=== PATIENT | male | born 1945 | race Caucasian/White ===

== ENCOUNTER 2023-12-31 12:06 | Inpatient (IN) | payer OTHER, SELFPAY ==
[2023-12-31] VITALS (10 sets, daily range): BP systolic 119–168; BP diastolic 61–82; BMI 30.2
--- NOTE | 2023-12-31 07:52 | ED.GENMED ---
History of Present Illness
General
Chief Complaint: Abdominal Pain
Time Seen by Provider: 12/31/23 07:46
Travel History
Have you had any contact with someone who has COVID-19?: No
Do you have any symptoms of coronavirus? Fever > 100 degrees, chills, cough, shortness of breath, sore throat, loss of taste or smell, muscle aches, or headache?: No
History of Present Illness
History of Present Illness:
78-year-old male with history of A-fib on Xarelto, dementia, and alcohol abuse presents to the emergency department for evaluation of abdominal pain beginning yesterday associated with multiple episodes of coffee-ground emesis overnight. Patient is
reporting 8 out of 10 periumbilical and epigastric pain. No known fevers. He is not sure whether he took his dose of Xarelto last night
Past History
Past History
ED Past Medical History: Arrthythmia (AFib), CHF, HTN and Other (Spinal stenosis, left foot drop)
ED Past Surgical History: Other (herniorrhaphy)
Social History
Tobacco: Non-smoker
Alcohol: Chronic alcoholic
Drug: None
Personal:
Living: with family
Employment: Retired
Family History
Family History: Other
Review of Systems
Review of Systems
Allergies reviewed?: Yes
All Other Systems: ROS reviewed and negative except as documented in HPI and ROS
Phy Exam
Physical Exam
Physical Exam:
GEN: Well appearing, NAD, WDWN
Eyes: PERRLA, EOMs intact, no scleral icterus
HENT: NCAT, oral mucosa moist
Lungs: CTAB, no wheezes, rales, rhonchi, normal chest wall excursion
Cardiac: RRR, no M/R/G, no peripheral edema. Radial pulses 2+ bilat
Abdomen: Distended abdomen, markedly tender to palpation to all 4 quadrants, soft but nonreducible umbilical hernia noted
Neuro: AO x 2
MSK: No gross deformity or ecchymosis. No edema. No digital clubbing
Skin: No rashes, petechiae. Normal color, no pallor or jaundice.
Psych: Calm, cooperative, proper hygiene
Course
Orders/Labs/Results
Orders:
Orders
12/31/23 07:51
CT Abd/Pel (IV only)-DH only Urgent
Comment:
Reason For Exam: epigastric pain, coffee ground emesis
Ondansetron Injectable [Zofran] 4 mg IV NOW STA
Pantoprazole [Protonix IV] 80 mg IV NOW STA
12/31/23 07:59
Type+Screen Urgent
Complete Blood Count/With Diff Urgent
Comprehensive Metabolic Panel Urgent
Lipase Urgent
Prothrombin Time Urgent
12/31/23 08:40
0.9% Sodium Chloride 1000 ml [Nss] 1,000 ml IV BOLUS
12/31/23 Lunch
NPO
Allow oral meds: No
Allow clear liquids: No
NPO with Ice Chips: Yes
Pantoprazole 80 mg/100 ml Nss [Protonix] 80 mg in 100 ml IV Q10H
12/31/23 11:40
Admit/Transfer Patient As Directed
Co-Sign Provider:
Level of Care: Inpatient admission
Assign to:: Telemetry
Physician / Group: Rufus
Diagnosis: Coffee ground emesis -rule out upper GI bleed
Reason for Telemetry: Arrhythmia
Date to Stop Telemetry: 01/03/24
Time to Stop Telemetry: 11:00
Reason for Hospitalization: see progress note
Expected length of stay greater than two midnights?: Yes
ELOS- Estimated Length of Stay in days: 2
I certify the patient meets the requirements for IP care: Yes
12/31/23 11:41
Code Status As Directed
Resuscitation Status: Do not resuscitate
Reached after discussion with pt or family/Healthcare POA: Yes
DNR Bracelet Application ONCE
12/31/23 13:42
H&H Q8H
Ondansetron Injectable [Zofran] 4 mg IV Q6HPRN PRN
Pantoprazole 80 mg/100 ml Nss [Protonix] 80 mg in 100 ml IV Q10H
12/31/23 13:42
GASTROINTESTINAL CONSULT Routine
Consulting Provider: Janak Blank
Was physician already notified: Yes
Reason for consult: Coffee ground emesis
Activity As Directed
Activity Level: With Assistance
Bladder Scan As Directed
Follow Bladder Retention/Intermittent Cath Algorithm?: Yes
PRN if no void in __ hours: 6
Frequency: Per Retention Algorithm
If Bladder Scan Result >: 400
then:: Straight cath
I&O [Intake/ Output] As Directed
Frequency: q12h
Pneumatic Compression Sleeves As Directed
Type: Knee high
Straight Cath As Directed
Frequency: Per Retention Algorithm
Additional Instructions: straight cath as needed per acute urinary retention algorithm for 24 hrs
Additional Instructions: for bladder scan greater than 400 mL
DX Deep Vein Thrombosis Video Routine
12/31/23 14:00
0.9% Sodium Chloride 1000 ml [Nss] 1,000 ml IV 80 mls/hr
12/31/23 21:42
H&H Q8H
01/01/24 05:42
H&H Q8H
01/01/24 06:00
BMP [Basic Metabolic Panel] IN AM
CBC/No Diff [Complete Blood Count/No Diff] IN AM
01/03/24 11:00
DC Protocol for Telemetry ONCE
Abnormal Lab Results
12/31/23
07:59
MCH 33.0 H pg
(27.0-31.0)
Absolute Neuts (auto) 7.0 H 10^3/uL
(1.4-6.5)
Neutrophils % 78.3 H %
(42.2-75.2)
Lymphocytes % 14.1 L %
(20.5-51.1)
PT 22.8 H Sec
(11.4-14.6)
BUN 30 H mg/dl
(9-20)
Creatinine 1.6 H mg/dL
(0.7-1.3)
Glucose 146 H mg/dl
(70-99)
Calcium 10.5 H mg/dl
(8.4-10.2)
Alkaline Phosphatase 143 H U/L
(38-126)
Total Protein 8.7 H g/dl
(6.3-8.2)
12/31/23 07:59
12/31/23 07:59
Vital Signs
Initial and Last Documented VS:
Initial Vital Signs
Temp Pulse Resp BP Pulse Ox
97.4 F 77 20 145/73 98
12/31/23 07:45 12/31/23 07:45 12/31/23 07:45 12/31/23 07:45 12/31/23 07:45
Last Documented Vital Signs
Temp Pulse Resp BP Pulse Ox
97.4 F 60 16 135/77 94
12/31/23 07:45 12/31/23 13:00 12/31/23 13:00 12/31/23 13:00 12/31/23 13:00
MDM/Problems Addressed
MDM/Problems Addressed:
78-year-old male presents with coffee-ground emesis and abdominal pain. CT shows no evidence for acute pathology, high suspicion for gastric ulcer or severe gastritis given chronic daily alcohol use. He is on anticoagulants thus increasing risk of
discharge home despite his clinical stability and normal hemoglobin. Will admit on IV PPIs for GI evaluation
*Critical Care Note
Total Time (30-74mins, 75-104mins- exclusive of procedures): Not Applicable
Update Note
Update Note:
Discussed clinical findings with the spouse, she confirms that he is a DNR/DNI but would consent to endoscopy for further assessment of presumed upper GI bleed
ED Attending Note
-
Portions of this chart may have been created with voice recognition software.� Occasional wrong word or��sound alike� substitutions may have occurred due to the inherent limitations of voice recognition software.
Discharge Plan
Departure
Patient Disposition: Admit
Date of Disposition: 12/31/23
Time of Disposition: 09:53
Admit to: Med/Surg
Presentation/result/management discussed w/ accepting MD/DO: Hospitalist
Discharge Problem:
Acute upper gastrointestinal bleeding
Interventions
Interventions:
*Risk Screen - Suicide Last Done: 12/31/23 07:45
*General Assessment Last Done: 12/31/23 07:45
*Neglect/Abuse Screening Last Done: 12/31/23 07:45
*ED COVID-19 Vaccine History Last Done: 12/31/23 08:17
LD-Qsghsy-Eijoxonpxp Assessment Last Done: 12/31/23 08:17
[2023-12-31] MEDS: ZOFRAN 4 MG IV (08:08)
[2023-12-31] MEDS: PROTONIX IV 80 MG IV (08:08)
[2023-12-31 08:09] LABS: % Basophils 0.9 % (0-2); % Eosinophils 0.9 % (0-6); % Immature Granulocytes 0.3 % (0-0.5); % Lymphocytes 14.1 % (20.5-51.1); % Monocytes 5.5 % (1.7-9.3); % Neutrophils 78.3 % (42.2-75.2); Absolute Basophils 0.1 10^3/uL (0-0.2); Absolute Eosinophils 0.1 10^3/uL (0-0.7); Absolute Lymphocytes 1.3 10^3/uL (1.2-3.4); Absolute Monocytes 0.5 10^3/uL (0.1-0.6); Hematocrit 44.3 % (39.0-52.0); Mean Corp Hgb Conc. 36.1 g/dL (33.0-37.0); Mean Corpuscular Volume 91.3 fL (80.0-94.0); Mean Platelet Volume 10.1 fL (7.4-10.4); Nucleated Red Blood Cells % 0 % (-); Platelet Count 272 10^3/uL (130-400); Red Blood Cell Count 4.85 10^6/uL (4.70-6.10); Red Cell Dist. Width 13.3 % (11.5-14.5)
[2023-12-31 08:20] LABS: INR 1.99; PT 22.8 Sec (11.4-14.6)
[2023-12-31 08:22] LABS: ALT (SGPT) 21 U/L (0-50); AST (SGOT) 32 U/L (17-59); Albumin 4.7 g/dl (3.5-5.0); Alkaline Phosphatase 143 U/L (38-126); Blood Urea Nitrogen 30 mg/dl (9-20); Calcium 10.5 mg/dl (8.4-10.2); Carbon Dioxide 24 mmol/L (22-30); Chloride 98 mmol/L (98-107); Estimated Creatinine Clearance 38 ml/min; Glucose 146 mg/dl (70-99); Lipase 137 U/L (23-300); Sodium 135 mmol/L (135-145); Total Protein 8.7 g/dl (6.3-8.2); eGFR 43.29
[2023-12-31] MEDS: NSS 1000 IV ×2 (09:50→14:25)
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
--- NOTE | 2023-12-31 11:49 | HPS.HSE ---
Addendum entered and electronically signed by Juan Hooper MD 01/01/24 09:53:
Correction - baseline cr 0.9
Original Note:
Family Physician
-
Family Physician: Neo Villegas
Chief Complaint
-
Coffee-ground emesis
History of Present Illness
Patient has history of dementia and history is from family and ER charting.
Patient is alert and oriented to place and person but is not sure why he is here. He does not remember having multiple episodes of coffee-ground emesis overnight. He states that his brought him here.
He had complained of abdominal pain to the ER medical provider but is denying any abdominal pain to me now.
Denies any nausea feeling.
Denies any diarrhea.
Denies any shortness of breath.
Pt denies dizziness.
He is on Xarelto , not sure last dose timing.
I spoke to daughter on phone.
was not available to talk ,she is on the way to hospital.
Medical History
Past Medical History
Past Medical History: Reports Arrhythmia (A-fib), CHF and HTN
Additional Past Medical History:
Spinal stenosis, left foot drop
Past Surgical History: Reports Other (Herniorrhaphy)
Additional Past Surgical History:
Herniorrhaphy
Social History
Tobacco: Non-smoker
Alcohol: Daily
Drug: None
Personal:
Living: With Family
Family History
Family History: Not pertinent
Allergies / Home Medications
Allergies reflects when Allergies were last updated in [facility].
Home Medications with original date entered in [facility]
Allergy/Medication List:
Allergies
Allergy/AdvReac Type Severity Reaction Status Date / Time
aspirin Allergy Hives Verified 12/31/23 07:51
Home Medications
allopurinol 100 mg tablet 100 mg PO DAILY Gout 12/31/23
cholecalciferol (vitamin D3) 25 mcg (1,000 unit) tablet 25 mcg PO DAILY Supplement 12/31/23
donepezil 5 mg tablet 5 mg PO HS Neurological Condition 12/31/23
isosorbide mononitrate 10 mg tablet 10 mg PO BID Heart Disease/Condition 12/31/23
memantine 5 mg tablet 5 mg PO BID Neurological Condition 12/31/23
metoprolol succinate 25 mg tablet,extended release 24 hr 25 mg PO QPM Blood Pressure 12/31/23
mometasone-formoterol HFA 200 mcg-5 mcg/actuation aerosol inhaler (Dulera) 2 puff inhalation R BID Lung/Breathing Issues 12/31/23
omega 8-tot-ios-fish oil 1,000 mg (120 mg-180 mg) capsule (Fish Oil) 1 cap PO DAILY Supplement 12/31/23
pantoprazole 20 mg tablet,delayed release 20 mg PO SUWEFR@0800 Gastrointestinal Issue 12/31/23
potassium chloride 20 mEq tablet,extended release(part/cryst) 20 meq PO QPM Electrolyte Repletion 12/31/23
rivaroxaban 20 mg tablet (Xarelto) 20 mg PO QPM Blood Clot Prevention/Tx 12/31/23
spironolactone 25 mg tablet 25 mg PO DAILY Blood Pressure 12/31/23
therapeutic multivitamin 1 tab PO DAILY Supplement 12/31/23
torsemide 20 mg tablet 20 mg PO BID Fluid Retention/Swelling 12/31/23
Review of Systems
-
Unable to obtain full review of systems at this time due to: Dementia
Physical Exam
Vital Signs
Vital Signs
Temp Pulse Resp BP Pulse Ox
97.4 F 69 19 129/67 98
12/31/23 07:45 12/31/23 10:30 12/31/23 10:30 12/31/23 10:00 12/31/23 10:30
Physical Exam
General: No Apparent Distress
HEENT: Moist mucous membranes
Respiratory: Clear
Cardiac: S1/S2 and Regular Rhythm; No Tachycardia
GI: Soft, Tender (some in periumbilical area, no rebound) and Distended (mild); No Normal Bowel Sounds (hypoactive)
Neuro: AO x 3
Psych: Calm
Laboratory Results
-
12/31/23 07:59
12/31/23 07:59
Laboratory Results
PT 22.8 Sec (11.4-14.6) H 12/31/23 07:59
INR 1.99 12/31/23 07:59
Total Bilirubin 1.0 mg/dl (0.2-1.3) 12/31/23 07:59
AST 32 U/L (17-59) 12/31/23 07:59
ALT 21 U/L (0-50) 12/31/23 07:59
Alkaline Phosphatase 143 U/L (38-126) H 12/31/23 07:59
Lipase 137 U/L (23-300) 12/31/23 07:59
Data Reviewed
-
CT Scan: Report Reviewed by me (CT A/P)
Lab Data: Labs Reviewed by me
Impression/Plan
-
Abdominal pain with multiple episode of coffee-ground emesis. Rule out upper GI bleed. Rule out secondary to constipation/ileus/enteritis. Currently hemodynamically stable. Patient is on anticoagulation with Xarelto. Admit to hospital.
Keep NPO.
Check serial H&H.
Consult GI.
Start on bowel regimen if ok from GI standpoint.
Start on Protonix drip.
Hold Xarelto.
YVES vs CKD
Last known creatinine 09/2027 was 2.9.
Hold diuretics and start on cautious IV fluids and follow creatinine.
Check a bladder scan.
Obtain old information.
History of atrial fibrillation-on Xarelto which I would hold. Not on any rate control medication. Admit to telemetry.
Chronic CHF-last known EF in 2021 was 55 to 60%. Clinically compensated. Hold diuretics with ongoing GI bleed.
Hypertension-hold medication for concern of GI bleed and follow.
DNR/DNI per family
[2023-12-31 14:06] LABS: Hematocrit 39.7 % (39.0-52.0); Hemoglobin 13.8 g/dL (13.0-18.0)
[2023-12-31] MEDS: PROTONIX 100 IV ×2 (14:25→23:50)
--- NOTE | 2023-12-31 16:35 | PTCARENOTE ---
pt admitted from ED, family at bedside assisting with HX as pt has dementia and is AOx2. pt denies pain, LCTA B/L. afib. abd round distended but not firm or tender. pt ambulated x2 assist to bathroom, had large formed BM was incont of urine. no
N/V/D. skin CDI no edema. +PP CB in reach. bed alarm applied
[2023-12-31 21:45] LABS: Hemoglobin 12.6 g/dL (13.0-18.0)
[2024-01-01] VITALS (8 sets, daily range): BP systolic 12–167; BP diastolic 52–111; BMI 30.2
[2024-01-01] MEDS: NSS 1000 IV ×2 (02:47→13:50)
[2024-01-01 06:11] LABS: Hematocrit 35.7 % (39.0-52.0); Hemoglobin 12.6 g/dL (13.0-18.0); Mean Corp Hgb Conc. 35.3 g/dL (33.0-37.0); Mean Corpuscular Hgb 33.3 pg (27.0-31.0); Mean Corpuscular Volume 94.4 fL (80.0-94.0); Mean Platelet Volume 9.8 fL (7.4-10.4); Platelet Count 231 10^3/uL (130-400); Red Blood Cell Count 3.78 10^6/uL (4.70-6.10); Red Cell Dist. Width 13.8 % (11.5-14.5); White Blood Cell Count 6.3 10^3/uL (4.8-10.8)
[2024-01-01 06:40] LABS: Blood Urea Nitrogen 21 mg/dl (9-20); Carbon Dioxide 25 mmol/L (22-30); Chloride 106 mmol/L (98-107); Estimated Creatinine Clearance 50 ml/min; Glucose 95 mg/dl (70-99); Potassium 3.7 mmol/L (3.5-5.1); Sodium 137 mmol/L (135-145); eGFR > 60.00
[2024-01-01] MEDS: SYMBICORT 160/4.5 MCG INHALER 2 PUFF INH (07:59)
--- NOTE | 2024-01-01 09:10 | W.PN.UPDATE ---
Update Note
Progress Note Update
Patient seen in follow-up today, reports tolerating clear liquids last night. Denies any recurrent nausea, vomiting or abdominal pain. He does still exhibit some epigastric tenderness on exam, no rebound or guarding. Mild abdominal distension,
tympanic to percussion. He is having bowel movements.
Hemoglobin 13.8 --> 12.6, BUN 30 --> 21, Cr. improved to 1.2.
After discussion with patient and his , January (POA), will proceed with EGD today. Last dose of Xarelto 12/29.
--- NOTE | 2024-01-01 09:42 | W.PN.HOSP.TC ---
Today's Communication/Plan
-
EGD today
Assessment / Plan
Assessment / Plan
Abdominal pain with multiple episode of coffee-ground emesis. Rule out upper GI bleed. Rule out secondary to constipation/ileus/enteritis.Patient is on anticoagulation with Xarelto.
No further episodes.�H&H drop noted which could be dilutional .
Follow serial H&H.
GI planning on EGD today
Continue bowel regimen.
Continue with Protonix drip.
Hold Xarelto.
YVES vs CKD
Last known creatinine 09/2027 was 0.9.
Suspect prerenal-improved creatinine to 1.2 from 1.6 on adx
Hold diuretics and continue on cautious IV fluids till patient initiated on oral diet..
History of atrial fibrillation-on Xarelto which I would hold. Not on any rate control medication.
Chronic CHF-last known EF in 2021 was 55 to 60%. Clinically compensated. Hold diuretics with ongoing GI bleed and YVES.
Hypertension-blood pressure under goal. Will resume medication after EGD.
DNR/DNI
Anticipated Discharge: 24 - 48 hours
Subjective/Interval History
-
Date of Service: January 01, 2024
Patient pleasantly confused.
Discussed with RN at bedside.
No further vomiting or hematemesis.
No bowel movement today so far.
Objective Data
-
Labs:
Laboratory Results
12/31/23 01/01/24
21:41 05:52
WBC 6.3
Hgb 12.6 L 12.6 L
Hct 35.0 L 35.7 L
Plt Count 231
Sodium 137
Potassium 3.7
Chloride 106
Carbon Dioxide 25
BUN 21 H
Creatinine 1.2
Glucose 95
Calcium 9.0 D
Vital Signs:
Vital Signs
Temp Pulse Resp BP Pulse Ox
97.7 F 52 16 139/64 99
01/01/24 07:53 01/01/24 08:06 01/01/24 08:06 01/01/24 07:53 01/01/24 08:06
I&O
12/31/23 01/01/24 01/02/24
06:59 06:59 06:59
Intake Total 600 / 600
Output Total 420 / 420
Balance 180 / 180
Review of Systems
-
Unable to obtain full review of systems at this time due to: Dementia
Physical Exam
-
General: No Apparent Distress
HEENT: Moist Mucous Membranes
Respiratory: Clear to Auscultation
Cardiac: Regular Rhythm and S1/S2
GI: Soft, Nontender (no tenderness in periumiblical area like he had yesterday), Normal Bowel Sounds and Distended (mild)
Neuro: Awake, Alert and Oriented (place and person)
Psych: Calm and Confused; Negative Agitated
Data Reviewed
-
Labs: Labs Reviewed by me
[2024-01-01] MEDS: PROTONIX 100 IV (10:26)
--- NOTE | 2024-01-01 15:40 | W.DS.TRANS ---
DC Summary - [facility]
-
Discharge Instructions:
Discharge Diagnosis/Procedures Coffee ground emesis s/p EGD without any
obvious source of bleeding.
Diet 2 Gram Sodium
Activity As tolerated
Driving Restrictions No driving
Bathing Restrictions None
Instructions:
Stand-Alone Forms:
Changes to Home Medications: Yes
Discharge Medications:
DC Medications w/original date entered in [facility]
allopurinol 100 mg tablet 100 mg PO DAILY Gout 12/31/23
cholecalciferol (vitamin D3) 25 mcg (1,000 unit) tablet 25 mcg PO DAILY Supplement 12/31/23
donepezil 5 mg tablet 5 mg PO HS Neurological Condition 12/31/23
isosorbide mononitrate 10 mg tablet 10 mg PO BID Heart Disease/Condition 12/31/23
memantine 5 mg tablet 5 mg PO BID Neurological Condition 12/31/23
metoprolol succinate 25 mg tablet,extended release 24 hr 25 mg PO QPM Blood Pressure 12/31/23
mometasone-formoterol HFA 200 mcg-5 mcg/actuation aerosol inhaler (Dulera) 2 puff inhalation R BID Lung/Breathing Issues 12/31/23
omega 7-lre-fen-fish oil 1,000 mg (120 mg-180 mg) capsule (Fish Oil) 1 cap PO DAILY Supplement 12/31/23
pantoprazole 20 mg tablet,delayed release 20 mg PO SUWEFR@0800 Gastrointestinal Issue 12/31/23
potassium chloride 20 mEq tablet,extended release(part/cryst) 20 meq PO QPM Electrolyte Repletion 12/31/23
rivaroxaban 20 mg tablet (Xarelto) 20 mg PO QPM Blood Clot Prevention/Tx 12/31/23
spironolactone 25 mg tablet 25 mg PO DAILY Blood Pressure 12/31/23
therapeutic multivitamin 1 tab PO DAILY Supplement 12/31/23
torsemide 20 mg tablet 20 mg PO BID Fluid Retention/Swelling 12/31/23
docusate sodium 100 mg capsule (Colace) 100 mg PO BID #60 caps 01/01/24
polyethylene glycol 3350 17 gram oral powder packet (Miralax) 17 g PO DAILY #30 ea 01/01/24
Home Medication Changes
New medication-Colace, MiraLAX
Pending Results: No
--- NOTE | 2024-01-01 15:52 | CM ---
Alert awake oriented patient who lives with his Junie who live in a condo with 0 step to enter and bed and bathroom on first floor. He is independent in driving and in all activities of daily living.He was offered Vn he declined need.
[facility] hx / No SNF history
Pharmacy [facility]
PCP DR Villegas
PLAN Home Declined VN
--- NOTE | 2024-01-01 17:48 | W.DCSUMMARY ---
Discharge Summary
Discharge Data
Date of Admission: 12/31/23
Date of Discharge: 01/01/24
-
Pending Results: No
Hospital Course
Primary diagnosis:
Coffee-ground emesis
Constipation
Suspected prerenal acute kidney injury
Secondary diagnosis:
History of atrial fibrillation -permanent -on Xarelto
Chronic CHF with normal EF
Essential hypertension
Hospital course:
Patient with history of dementia angiograms of history due to the nature of his symptoms on admission was brought in by family because of vomiting and multiple episodes of coffee-ground emesis. He was complaining of some abdominal pain and
discomfort to the ER. He had a benign belly. CT of the abdomen pelvis showed
1. Large volume of stool within the rectosigmoid colon. No bowel obstruction.
2. Liquid stool within the proximal colon. Diffuse fluid-filled small bowel loops with small air-fluid levels, no abnormal dilation or abnormal wall thickening. These findings may be seen in association with ileus or enteritis.
3. Small hiatal hernia. Small fat-containing umbilical hernia.
4. Diverticulosis without diverticulitis.
No further episodes of emesis or coffee-ground vomitus here. He remained hemodynamically stable and H&H was stable as well.
Had endoscopy which showed no evidence of obvious source of bleeding. Unclear if he had emesis secondary to his constipation and ileus versus enteritis. His abdomen remained benign and he was tolerating a diet. He was put on a bowel regimen and
was discharged back home.
Consultants on board:
[facility] Jacques
Discharge Plan
-
Patient Disposition: Home (Routine Discharge)
Discharge Diagnosis/Procedures: Coffee ground emesis s/p EGD without any obvious source of bleeding.
Diet: 2 Gram Sodium
Activity: As tolerated
Driving Restrictions: No driving
Bathing Restrictions: None
Referrals:
Neo Villegas MD [Family Provider] - in less than 1 week
Prescriptions:
New
docusate sodium [Colace] 100 mg capsule
100 mg PO BID Qty: 60 0RF
polyethylene glycol 3350 [Miralax] 17 gram powder in packet
17 g PO DAILY Qty: 30 0RF
Continued
donepezil 5 mg Tablet
5 mg PO HS
torsemide 20 mg Tablet
20 mg PO BID
therapeutic multivitamin Tablet
1 tab PO DAILY
allopurinol 100 mg Tablet
100 mg PO DAILY
spironolactone 25 mg Tablet
25 mg PO DAILY
pantoprazole 20 mg Tablet,Delayed Release (Dr/Ec)
20 mg PO SUWEFR@0800
potassium chloride 20 mEq Tablet,Er Particles/Crystals
20 meq PO QPM
isosorbide mononitrate 10 mg Tablet
10 mg PO BID
metoprolol succinate 25 mg Tablet Extended Release 24 Hr
25 mg PO QPM
memantine 5 mg Tablet
5 mg PO BID
cholecalciferol (vitamin D3) 25 mcg (1,000 unit) Tablet
25 mcg PO DAILY
omega 5-mxu-ykz-fish oil [Fish Oil] 1,000 mg (120 mg-180 mg) Capsule
1 cap PO DAILY
Dulera 200-5 mcg/actuation Hfa Aerosol Inhaler
2 puff INHALATION R BID
Xarelto 20 mg Tablet
20 mg PO QPM
Patient Comments:
12/31/2023, [facility] records from 2020.
Discharge Orders:
Discharge Patient (As Directed); Ordered 01/01/24
Ordered By: Juan Hooper
Discharge Date and Time
Print Language: TAMAZIGHT
--- NOTE | 2024-01-01 18:30 | PTCARENOTE ---
Pt with discharge order in. CM made aware. Multiple calls placed to Pt's January to inform her of husbands discharge order. Unable to reach during shift.
== END 2024-01-01 19:17 | disposition home or self-care (01) | DRG 378 ==
LOC: 3 WEST ACU 12:06
PROVIDERS: Internal Medicine; Physician Assistant; ADMITTING PHYSICIAN Internal Medicine; CONSULT PHYSICIAN Internal Medicine; EMERGENCY PHYSICIAN Emergency Medicine; FAMILY PHYSICIAN Internal Medicine
PROC: 0DB38ZX Excision of Lower Esophagus, Via Natural or Artificial Opening Endoscopic, Diagnostic (ICD-10-PCS; 2024-01-01)
DX: K92.0 Hematemesis (principal); I50.32 Chronic diastolic (congestive) heart failure; N17.9 Acute kidney failure, unspecified; K44.9 Diaphragmatic hernia without obstruction or gangrene; K57.81 Diverticulitis of intestine, part unspecified, with perforation and abscess with bleeding; K22.89 Other specified disease of esophagus; I11.0 Hypertensive heart disease with heart failure; Z66 Do not resuscitate; Z79.01 Long term (current) use of anticoagulants
CPT/HCPCS: 88305; 74177; 80048; 80053; 83690; 85014; 85018; 85025; 85027; 85610; 86850; 86900; 86901; 94640; 96361; 96374; 96375; 99285; Q9967

== ENCOUNTER 2025-04-27 00:33 | Observation (INO) | payer OTHER, SELFPAY ==
[2025-04-26 21:21] VITALS: BP 136/72
[2025-04-26 21:23] VITALS: BP 136/72
[2025-04-26 21:31] VITALS: BMI 27.1
[2025-04-26 21:56] LABS: Hematocrit 40.7 % (39.0-52.0); Hemoglobin 14.3 g/dL (13.0-18.0); Mean Corp Hgb Conc. 35.1 g/dL (33.0-37.0); Mean Corpuscular Volume 92.5 fL (80.0-94.0); Nucleated Red Blood Cells % 0 % (-); Platelet Count 232 10^3/uL (130-400); Red Cell Dist. Width 13.9 % (11.5-14.5)
[2025-04-26 22:00] VITALS: BP 127/71
--- NOTE | 2025-04-26 22:06 | ED.GENMED ---
History of Present Illness
General
Chief Complaint: Dizziness
Source: patient
Exam Limitations: none
Time Seen by Provider: 04/26/25 21:57
History of Present Illness
History of Present Illness:
See MDM
Past History
Past History
ED Past Medical History: Arrthythmia (AFib), CHF, HTN and Other (Spinal stenosis, left foot drop)
ED Past Surgical History: Other (herniorrhaphy)
Social History
Tobacco: Non-smoker
Alcohol: Chronic alcoholic
Drug: None
Personal:
Living: with family
Employment: Retired
Family History
Family History: Other
Phy Exam
Physical Exam
Physical Exam:
See MDM
Course
Orders/Labs/Results
Orders:
Orders
04/26/25 21:33
Complete Blood Count/With Diff Urgent
04/26/25 22:05
Diazepam [Valium] 2 mg PO NOW STA
04/26/25 22:08
CT Head W/o Iv Contrast Urgent
Comment:
Reason For Exam: headache, dizzy
04/26/25 22:33
Comprehensive Metabolic Panel Urgent
Abnormal Lab Results
04/26/25 04/26/25
21:33 22:33
RBC 4.40 L 10^6/uL
(4.70-6.10)
MCH 32.5 H pg
(27.0-31.0)
MPV 10.6 H fL
(7.4-10.4)
Absolute Monos (auto) 0.7 H 10^3/uL
(0.1-0.6)
Monocytes % 9.5 H %
(1.7-9.3)
Sodium 133 L mmol/L
(135-145)
Potassium 3.2 L mmol/L
(3.5-5.1)
BUN 21 H mg/dl
(9-20)
Glucose 126 H mg/dl
(70-99)
04/26/25 21:33
04/26/25 22:33
Vital Signs
Initial and Last Documented VS:
Initial Vital Signs
BP
136/72
04/26/25 21:21
Last Documented Vital Signs
Temp Pulse Resp BP Pulse Ox
97.6 F 56 14 132/79 96
04/26/25 21:23 04/26/25 23:00 04/26/25 23:00 04/26/25 23:00 04/26/25 23:00
MDM/Problems Addressed
Differential Diagnosis Includes:
Note:
CHIEF COMPLAINT(S)
Dizziness
HISTORY OF PRESENT ILLNESS
The patient is an 79-year-old male with a history of atrial fibrillation who presents with dizziness. The dizziness was sudden in onset, making the patient experience sensations angel to vertigo, where he perceived the room spinning around him. He
recalls feeling very nauseous upon trying to open his eyes and upon attempting to consume a glass of water with medication, the feeling of nausea was significant. The patient expressed that this is the worst he has ever felt, indicating that this
dizziness episode may be more severe than previous ones. Medications, including Meclizine, have been administered with only partial relief of symptoms. Upon further evaluation, the patient was able to perform coordination tasks successfully,
reducing the likelihood of a cerebrovascular accident. The patient has not yet undergone any imaging of the brain recently for this condition.
PAST MEDICAL AND SURIGICAL HISTORY
The patient has a known history of atrial fibrillation.
MEDICATIONS
The patient regularly takes Digoxin and an inhaler medication every night.
PHYSICAL EXAM
General: Weak and frail
Skin: Warm, dry.
Head: Normocephalic, atraumatic
Neck: Appears supple, trachea midline.
Eyes, Ears, Nose, Mouth, and Throat: Oral mucosa moist. Cerumen noted to both canals
Cardiovascular: No signs of cyanosis. Irregular rhythm
Respiratory: Respirations are non-labored.
Abdomen: Non-distended
Musculoskeletal: No deformities
Neurological: No focal neurological deficit observed. Normal finger-nose bilaterally
Psychiatric: Cooperative, appropriate mood and affect.
PLAN
Administer a small dose of a benzodiazepine to manage dizziness and anxiety symptoms.
Monitor the patient�s response to the medication.
Review previous imaging records to ensure comprehensive assessment.
Discharge the patient if symptoms adequately resolve and he is ambulating well. Should symptoms persist or impede safe mobility, consider overnight observation.
Await blood test results to rule out any metabolic or hematological issues.
Obtain CT head
DIFFERENTIAL DIAGNOSIS
The Differential Diagnosis includes, in no particular order and is not limited to:
1. Benign Paroxysmal Positional Vertigo
2. Vestibular Neuritis
3. Labyrinthitis
4. Meniere�s Disease
5. Stroke or Transient Ischemic Attack
6. Medication Side Effect
7. Acute Vestibular Migraine
8. Orthostatic Hypotension
9. Dehydration
10. Cardiovascular Origin Dizziness (e.g., arrhythmia exacerbation)
SUMMARY OF ENCOUNTER
The 79-year-old male patient presented to the emergency department with dizziness, described as a sensation angel to vertigo. This episode was noted to be more severe than prior incidents. Initial management included administration of diazepam,
providing partial symptom relief. A CT scan was performed to rule out acute central nervous system causes of dizziness, with results returning negative. An attempt at ambulation was made, however, the patient remained too unsteady, necessitating
further in-hospital assessment and management.
DISPOSITION
Admit for further workup of dizziness.
ASSESSMENT
The patient presents with dizziness consistent with vestibular origin but requiring further evaluation given the severity and unsteadiness upon attempted ambulation.
EMERGENCY TREATMENTS ADMINISTERED
Administration of diazepam provided partial symptom relief.
PLAN
Admit the patient for continued evaluation, monitoring, and further diagnostic workup to identify the cause of the dizziness and determine appropriate intervention.
INDEPENDENT REVIEW OF LABS AND INTERPRETATION OF TESTS
My independent interpretation of the CT scan is negative for acute DIKE SUPERVISOR pathology.
MEDICATION RECONCILIATION
Diazepam was administered in the emergency department.
MEDICAL DECISION MAKING
-Complexity of Data Reviewed: Chronic conditions affecting care, including a history of atrial fibrillation. Differential diagnoses considered include Benign Paroxysmal Positional Vertigo, Vestibular Neuritis, Labyrinthitis, Meniere�s Disease,
Stroke or Transient Ischemic Attack, Medication Side Effect, Acute Vestibular Migraine, Orthostatic Hypotension, Dehydration, and Cardiovascular Origin Dizziness.
-Data:
Category 1: CT scan performed and independently interpreted as negative for acute central nervous system causes.
-Risk: Due to persistent symptoms and unsteadiness, decision to admit the patient for further comprehensive evaluation was made.
*Pulse Oximetry
SaO2: 98
Oxygen Mode of Delivery: Room air
Patient hypoxic: no
*Critical Care Note
Total Time (30-74mins, 75-104mins- exclusive of procedures): Not Applicable
ED Attending Note
-
Portions of this chart may have been created with voice recognition software.� Occasional wrong word or��sound alike� substitutions may have occurred due to the inherent limitations of voice recognition software.
Discharge Plan
Departure
Patient Disposition: Admit
Date of Disposition: 04/27/25
Time of Disposition: 00:00
Admit to: Med/Surg
Presentation/result/management discussed w/ accepting MD/DO: Hospitalist
Discharge Problem:
Dizziness
Prescriptions:
No Action
donepezil 5 mg Tablet
5 mg PO HS
torsemide 20 mg Tablet
20 mg PO BID
therapeutic multivitamin Tablet
1 tab PO DAILY
allopurinol 100 mg Tablet
100 mg PO DAILY
spironolactone 25 mg Tablet
25 mg PO DAILY
pantoprazole 20 mg Tablet,Delayed Release (Dr/Ec)
20 mg PO SUWEFR@0800
potassium chloride 20 mEq Tablet,Er Particles/Crystals
20 meq PO QPM
isosorbide mononitrate 10 mg Tablet
10 mg PO BID
metoprolol succinate 25 mg Tablet Extended Release 24 Hr
25 mg PO QPM
memantine 5 mg Tablet
5 mg PO BID
cholecalciferol (vitamin D3) 25 mcg (1,000 unit) Tablet
25 mcg PO DAILY
omega 1-xww-woz-fish oil [Fish Oil] 1,000 mg (120 mg-180 mg) Capsule
1 cap PO DAILY
Dulera 200-5 mcg/actuation Hfa Aerosol Inhaler
2 puff INHALATION R BID
Xarelto 20 mg Tablet
20 mg PO QPM
Patient Comments:
12/31/2023, [facility] records from 2020.
docusate sodium [Colace] 100 mg capsule
100 mg PO BID Qty: 60 0RF
polyethylene glycol 3350 [Miralax] 17 gram powder in packet
17 g PO DAILY Qty: 30 0RF
Referrals:
Neo Villegas MD [Family Provider, Internal Medicine]
Interventions
Interventions:
*Risk Screen - Suicide Last Done: 04/26/25 21:23
*General Assessment Last Done: 04/26/25 21:23
*Neglect/Abuse Screening Last Done: 04/26/25 21:23
*ED- Fall Risk Assessment Last Done: 04/26/25 21:31
*ED COVID-19 Vaccine History Last Done: 04/26/25 21:31
ED- Neurological Assessment Last Done: 04/26/25 21:31
ED- Cardiac Assessment Last Done: 04/26/25 21:31
ED Swallowing Screen Last Done: 04/26/25 22:09
Discharge Date and Time
Print Language: SPANISH
[2025-04-26] MEDS: VALIUM 2 MG PO (22:11)
[2025-04-26 23:00] VITALS: BP 132/79
[2025-04-26 23:11] LABS: ALT (SGPT) 14 U/L (0-50); AST (SGOT) 22 U/L (17-59); Albumin 3.8 g/dl (3.5-5.0); Alkaline Phosphatase 93 U/L (38-126); Blood Urea Nitrogen 21 mg/dl (9-20); Calcium 9.4 mg/dl (8.4-10.2); Carbon Dioxide 26 mmol/L (22-30); Chloride 101 mmol/L (98-107); Estimated Creatinine Clearance 62 ml/min; Glucose 126 mg/dl (70-99); Potassium 3.2 mmol/L (3.5-5.1); Sodium 133 mmol/L (135-145); Total Protein 6.9 g/dl (6.3-8.2); eGFR > 60.00
[2025-04-27] VITALS (12 sets, daily range): BP systolic 119–166; BP diastolic 56–83; PULSE 54–87; O2SAT 100; BMI 27.3
--- NOTE | 2025-04-27 00:31 | HPS.HSE ---
Family Physician
-
Family Physician: Neo Villegas
Chief Complaint
-
Dizziness
History of Present Illness
Patient is an 79y M with PMH significant for hypertension, CHF and dementia who presents to ED complaining of dizziness. Patient states that symptoms started shortly after waking this AM. He used the bathroom and felt dizzy / unsteady when
standing from the toilet. He has had persistent dizziness throughout the day. He reports nausea without emesis. No headache. He did not fall. No LOC. Patient has had similar episodes in the past - about once or twice per year according to his
.
He has chronic LE edema from CHFpEF and is followed by Cardiology / on chronic diuretics.
No recent changes in medications.
No fevers / chills, cough, dyspnea, etc.
In the ED, patient feels somewhat improved after diazepam - but remains unsteady on his feet and unable to ambulate unassisted.
Medical History
Past Medical History
Past Medical History: Reports Other
Additional Past Medical History:
Paroxysmal Atrial Fibrillation
HFpEF
Hypertension
Gout
Dementia
Prostate Cancer
Asthma
Past Surgical History: Reports Other
Additional Past Surgical History:
Prostatectomy
Hernia Repair
Appendectomy
Social History
Tobacco: Non-smoker
Alcohol: None
Drug: None
Family History
Family History: Not pertinent
Allergies / Home Medications
Allergies reflects when Allergies were last updated in [facility].
Home Medications with original date entered in [facility]
Allergy/Medication List:
Allergies
Allergy/AdvReac Type Severity Reaction Status Date / Time
aspirin Allergy Hives Verified 04/26/25 21:22
Home Medications
allopurinol 100 mg tablet 100 mg PO DAILY Gout 12/31/23
memantine 5 mg tablet 5 mg PO BID Neurological Condition 12/31/23
metoprolol succinate 25 mg tablet,extended release 24 hr 25 mg PO QPM Blood Pressure 12/31/23
pantoprazole 20 mg tablet,delayed release 20 mg PO DAILY Gastrointestinal Issue 12/31/23
potassium chloride 20 mEq tablet,extended release(part/cryst) 20 meq PO QPM Electrolyte Repletion 12/31/23
rivaroxaban 20 mg tablet (Xarelto) 20 mg PO QPM Blood Clot Prevention/Tx 12/31/23
spironolactone 25 mg tablet 12.5 mg PO DAILY Blood Pressure 12/31/23
torsemide 20 mg tablet 20 mg PO BID Fluid Retention/Swelling 12/31/23
fluticasone 250 mcg-salmeterol 50 mcg/dose blistr powdr for inhalation 1 inh inhalation BID 04/27/25
isosorbide mononitrate 30 mg tablet,extended release 24 hr 30 mg PO DAILY 04/27/25
Review of Systems
-
History Source: Patient and Family
A 12 point ROS was completed and negative except as noted: Yes
Constitutional: Reports Fatigue; Denies Fever or Chills
Respiratory: Denies Cough or Trouble Breathing
Cardiac: Denies Chest Pain or Palpitations
Abdomen/GI: Reports Nausea; Denies Abdominal Pain, Vomiting or Diarrhea
: Denies Dysuria or Frequency
Musculoskeletal: Reports Edema; Denies Joint Pain
Neurological: Reports Dizzy; Denies Headache, Weakness or Numbness
Psych: Reports Dementia; Denies Depression or Anxiety
Physical Exam
Vital Signs
Vital Signs
Temp Pulse Resp BP Pulse Ox
97.6 F 69 22 139/70 97
04/26/25 21:23 04/26/25 23:45 04/26/25 23:45 04/27/25 00:00 04/27/25 00:00
Physical Exam
General: Other (79y M in no acute distress.)
HEENT: Moist mucous membranes and PERRLA
Respiratory: Clear; No Wheezes, Rales or Rhonchi
Cardiac: S1/S2, Regular Rhythm and Murmur (II/ VIET)
GI: Soft, Non Tender, Non Distended and Normal Bowel Sounds
Musculoskeletal: No Clubbing, No Cyanosis and Other (1-2+ pitting edema b/l LEs.)
Neuro: Awake, Alert and Nonfocal/grossly intact
Laboratory Results
-
04/26/25 21:33
04/26/25 22:33
Laboratory Results
Total Bilirubin 1.0 mg/dl (0.2-1.3) 04/26/25 22:33
AST 22 U/L (17-59) 04/26/25:33
ALT 14 U/L (0-50) 04/26/25:33
Alkaline Phosphatase 93 U/L (38-126) 04/26/25:33
Impression/Plan
-
A/P: Patient is an 79y M with PMH significant for A-Fib, CHF and dementia who presents to ED complaining of dizziness.
Dizziness
- Observe overnight for further evaluation and treatment.
- Suspect Meniere's disease as notes 1-2 episodes per year of similar symptoms.
- Meclizine PRN for any recurrent symptoms.
- PT / vestibular eval in the AM.
- TEDs stockings. Check orthostatic signs.
- Monitor for any new / worsening symptoms.
Chronic HFpEF
Mild Hyponatremia
Mild Hypokalemia
- Some edema evident on exam - but not changed from usual baseline per .
- Continue usual diuretic regimen. Follow for improvement in Na level with diuresis.
- Increase potassium supplementation to BID for now.
- Continue spironolactone.
- Follow I/Os, daily weights.
- Follow labs and adjust replacement as needed.
Paroxysmal Atrial Fibrillation
- Monitor on tele overnight.
- Continue metoprolol and Xarelto.
Benign Hypertension
- Stable. Continue current med regimen with holding parameters.
- Check orthostatic signs as noted above.
Asthma without Acute Exacerbation
- Continue Advair BID.
- Albuterol PRN.
Senile Dementia
- Continue Namenda. Aricept stopped some time ago due to lack of effect per .
- Follow for any agitation / delirium during acute stay.
DVT Prophylaxis: On Xarelto
Code Status: Full
--- NOTE | 2025-04-27 01:28 | PTCARENOTE ---
Pt received from ED to 437-1. Pt oriented to room and call malave.
[2025-04-27] MEDS: KCL 20 MEQ PO ×3 (01:51→19:49)
[2025-04-27 07:57] LABS: Hematocrit 39.4 % (39.0-52.0); Hemoglobin 13.9 g/dL (13.0-18.0); Mean Corp Hgb Conc. 35.3 g/dL (33.0-37.0); Mean Corpuscular Volume 94.5 fL (80.0-94.0); Platelet Count 238 10^3/uL (130-400); Red Cell Dist. Width 13.5 % (11.5-14.5)
[2025-04-27 08:23] LABS: Blood Urea Nitrogen 19 mg/dl (9-20); Calcium 9.6 mg/dl (8.4-10.2); Carbon Dioxide 27 mmol/L (22-30); Chloride 104 mmol/L (98-107); Estimated Creatinine Clearance 58 ml/min; Glucose 103 mg/dl (70-99); Magnesium 2.1 mg/dl (1.6-2.3); Potassium 4.1 mmol/L (3.5-5.1); Sodium 136 mmol/L (135-145); eGFR > 60.00
[2025-04-27] MEDS: ADVAIR HFA 115/21 MCG INHALER 2 PUFF INH ×2 (08:33→21:04)
[2025-04-27] MEDS: PROTONIX 20 MG PO (08:54)
[2025-04-27] MEDS: NAMENDA 5 MG PO ×2 (08:54→19:52)
[2025-04-27] MEDS: ZYLOPRIM 100 MG PO (08:55)
[2025-04-27] MEDS: ALDACTONE PO (09:01)
[2025-04-27] MEDS: DEMADEX 20 MG PO ×2 (09:01→19:48)
[2025-04-27] MEDS: IMDUR (EXTENDED RELEASE) 30 MG PO (09:01)
--- NOTE | 2025-04-27 10:33 | CM ---
Patient seen at bedside
SAUCEDA FORM EXPLAINED & signed. In chart
IA completed
PMH significant for hypertension, CHF and dementia who presents to ED complaining of dizziness
await PT/OT evals
Lives with in a 1 story home, 1 step to enter
PLOF: imdependent with walker
DME: Walker, shower chair
Has had VN in past, does not recall agency, denies Rehab
pcp: Dr. Neo Daily
Pharmacy: [facility]
Plan: TBD, await PT rec, CM to continue to follow for needs
--- NOTE | 2025-04-27 13:01 | W.PN.HOSP.TC ---
Today's Communication/Plan
-
monitor vitals
see plan
meclizine
PT
discussed with spouse
non billable note
Assessment / Plan
Assessment / Plan
General: Other (79y M in no acute distress.)
HEENT: Moist mucous membranes and PERRLA
Respiratory: Clear; No Wheezes, Rales or Rhonchi
Cardiac: S1/S2, Regular Rhythm and Murmur (II/ VIET)
GI: Soft, Non Tender, Non Distended and Normal Bowel Sounds
Musculoskeletal: No Clubbing, No Cyanosis and Other (1-2+ pitting edema b/l LEs.)
Neuro: Awake, Alert and Nonfocal/grossly intact
vertigo
- Suspect Meniere's disease as notes 1-2 episodes per year of similar symptoms.
- Meclizine PRN for any recurrent symptoms.
- PT / vestibular eval
- TEDs stockings. Check orthostatic signs.
- Monitor for any new / worsening symptoms.
discussed with spouse,appears vertigo. patient does have dementia
Chronic HFpEF
Mild Hyponatremia
Mild Hypokalemia
- Some edema evident on exam - but not changed from usual baseline per .
- Continue usual diuretic regimen. Follow for improvement in Na level with diuresis.
- Increase potassium supplementation to BID for now.
- Continue spironolactone.
- Follow I/Os, daily weights.
- Follow labs and adjust replacement as needed.
Paroxysmal Atrial Fibrillation
cw tele
- Continue metoprolol and Xarelto
check ekg
Benign Hypertension
- Stable. Continue current med regimen with holding parameters.
- Check orthostatic signs as noted above.
Asthma without Acute Exacerbation
- Continue Advair BID.
- Albuterol PRN.
Senile Dementia
- Continue Namenda. Aricept stopped some time ago due to lack of effect per .
- Follow for any agitation / delirium during acute stay.
DVT Prophylaxis: On Xarelto
Code Status: Full
Anticipated Discharge: Within 24 hours
Subjective/Interval History
-
Date of Service: April 27, 2025
denies pain
Objective Data
-
Labs:
Laboratory Results
04/27/25
07:04
WBC 5.8
Hgb 13.9
Hct 39.4
Plt Count 238
Sodium 136
Potassium 4.1 D
Chloride 104
Carbon Dioxide 27
BUN 19
Creatinine 0.9
Glucose 103 H
Calcium 9.6
Vital Signs:
Vital Signs
Temp Pulse Resp BP Pulse Ox
97.9 F 82 16 142/76 96
04/27/25 11:27 04/27/25 11:27 04/27/25 11:27 04/27/25 11:27 04/27/25 11:27
I&O
04/26/25 04/27/25 04/28/25
06:59 06:59 06:59
Output Total 400 / 400
Balance -400 / -400
--- NOTE | 2025-04-27 14:15 | PTOTSP ---
pt currently requires supervision to complete simple ADLs, functional transfers, ambulation. pt reports no concerns with returning to PLOF, home. no acute OT needs identified, will sign off.
[2025-04-27] MEDS: XARELTO 20 MG PO (17:17)
[2025-04-27] MEDS: TOPROL XL 25 MG PO (17:18)
[2025-04-27] MEDS: NAMENDA PO (19:47)
[2025-04-28 03:04] VITALS: BP 158/73
[2025-04-28 06:17] VITALS: BMI 27.4
[2025-04-28 07:30] VITALS: BP 150/80; BP 160/75; BP 177/87; PULSE 53; PULSE 59; PULSE 63
[2025-04-28] MEDS: ADVAIR HFA 115/21 MCG INHALER 2 PUFF INH ×2 (07:55→20:06)
[2025-04-28] MEDS: DEMADEX 20 MG PO (08:55)
[2025-04-28] MEDS: IMDUR (EXTENDED RELEASE) 30 MG PO (08:56)
[2025-04-28] MEDS: PROTONIX 20 MG PO (08:56)
[2025-04-28] MEDS: ALDACTONE 12.5 MG PO (08:56)
[2025-04-28] MEDS: ZYLOPRIM 100 MG PO (08:57)
[2025-04-28] MEDS: KCL 20 MEQ PO ×2 (08:58→20:12)
[2025-04-28] MEDS: NAMENDA 5 MG PO ×2 (08:58→20:12)
[2025-04-28 09:10] LABS: Hematocrit 43.3 % (39.0-52.0); Hemoglobin 14.7 g/dL (13.0-18.0); Mean Corp Hgb Conc. 33.9 g/dL (33.0-37.0); Mean Corpuscular Volume 95.2 fL (80.0-94.0); Nucleated Red Blood Cells % 0 % (-); Platelet Count 247 10^3/uL (130-400); Red Cell Dist. Width 14.1 % (11.5-14.5)
[2025-04-28 09:40] LABS: Blood Urea Nitrogen 20 mg/dl (9-20); Calcium 9.4 mg/dl (8.4-10.2); Carbon Dioxide 27 mmol/L (22-30); Chloride 103 mmol/L (98-107); Estimated Creatinine Clearance 48 ml/min; Glucose 97 mg/dl (70-99); Potassium 3.6 mmol/L (3.5-5.1); Sodium 138 mmol/L (135-145); eGFR > 60.00
[2025-04-28 11:05] VITALS: BP 149/88
--- NOTE | 2025-04-28 11:55 | W.PN.HOSP.TC ---
Today's Communication/Plan
-
Monitor vitals
See plan
Discussed with family
Hold Aldactone
Decrease torsemide to 20 mg daily instead of twice daily
Monitor orthostatics
Check TSH and cortisol in a.m.
Hopeful discharge tomorrow if improving
TEDS
Assessment / Plan
Assessment / Plan
General: Other (79y M in no acute distress.)
HEENT: Moist mucous membranes and PERRLA
Respiratory: Clear; No Wheezes, Rales or Rhonchi
Cardiac: S1/S2, Regular Rhythm and Murmur (II/ VIET)
GI: Soft, Non Tender, Non Distended and Normal Bowel Sounds
Musculoskeletal: No Clubbing, No Cyanosis and Other (1-2+ pitting edema b/l LEs.)
Neuro: Awake, Alert and Nonfocal/grossly intact
vertigo,dizziness
has dementia so symptoms hard to rocky
- Suspect Meniere's disease as notes 1-2 episodes per year of similar symptoms.
- Meclizine PRN for any recurrent symptoms.
- PT eval
- TEDs stockings. Check orthostatic signs, positive. TDS. check cortisol,TSH
- Monitor for any new / worsening symptoms.
discussed with spouse,appears vertigo. patient does have dementia
Chronic HFpEF
Mild Hyponatremia
Mild Hypokalemia
- Some edema evident on exam - but not changed from usual baseline per .
- Continue usual diuretic regimen. Follow for improvement in Na level with diuresis.
- Increase potassium supplementation to BID for now.
- Hold spironolactone, decrease torsemide to 20 mg daily instead of twice daily and monitor orthostatics. TEDS
- Follow I/Os, daily weights.
Paroxysmal Atrial Fibrillation
cw tele
- Continue metoprolol and Xarelto
Currently in A-fib
Benign Hypertension
- Stable. Continue current med regimen with holding parameters.
- orthostatic signs as noted above.
Asthma without Acute Exacerbation
- Continue Advair BID.
- Albuterol PRN.
Senile Dementia
- Continue Namenda. Aricept stopped some time ago due to lack of effect per .
- Follow for any agitation / delirium during acute stay.
DVT Prophylaxis: On Xarelto
Code Status: Full
Anticipated Discharge: Within 24 hours
Subjective/Interval History
-
Date of Service: April 28, 2025
denies dizziness
Objective Data
-
Labs:
Laboratory Results
04/28/25
08:39
WBC 6.2
Hgb 14.7
Hct 43.3
Plt Count 247
Sodium 138
Potassium 3.6
Chloride 103
Carbon Dioxide 27
BUN 20
Creatinine 1.1
Glucose 97
Calcium 9.4
Vital Signs:
Vital Signs
Temp Pulse Resp BP Pulse Ox
97.8 F 71 18 149/88 97
04/28/25 11:05 04/28/25 11:05 04/28/25 11:05 04/28/25 11:05 04/28/25 11:05
I&O
04/27/25 04/28/25 04/29/25
06:59 06:59 06:59
Intake Total 840 / 840
Output Total 400 / 400
Balance -400 / -400 840 / 840
[2025-04-28 15:28] VITALS: BP 118/70
--- NOTE | 2025-04-28 15:33 | CM ---
Discharge POC: Home with [facility] RN, PT/OT services. Possible discharge tomorrow, 04/29/25.
[2025-04-28] MEDS: TOPROL XL 25 MG PO (18:19)
[2025-04-28] MEDS: XARELTO 20 MG PO (18:19)
[2025-04-28 19:36] VITALS: BP 142/68
[2025-04-28 23:13] VITALS: BP 131/67; BP 137/80; BP 147/79; PULSE 49; PULSE 62; PULSE 66
[2025-04-29 00:13] VITALS: BP 131/67; BP 137/80; BP 147/79; PULSE 49; PULSE 62; PULSE 66
[2025-04-29 03:20] VITALS: BP 118/92
[2025-04-29 06:00] VITALS: BMI 27.2
[2025-04-29] MEDS: ADVAIR HFA 115/21 MCG INHALER 2 PUFF INH (07:29)
[2025-04-29 08:00] VITALS: BP 135/61
[2025-04-29] MEDS: KCL 20 MEQ PO (08:28)
[2025-04-29] MEDS: NAMENDA 5 MG PO (08:28)
[2025-04-29] MEDS: PROTONIX 20 MG PO (08:28)
[2025-04-29] MEDS: ZYLOPRIM 100 MG PO (08:28)
[2025-04-29] MEDS: IMDUR (EXTENDED RELEASE) 30 MG PO (08:29)
[2025-04-29] MEDS: DEMADEX 20 MG PO (08:29)
[2025-04-29 08:39] LABS: Hematocrit 39.9 % (39.0-52.0); Hemoglobin 13.9 g/dL (13.0-18.0); Mean Corp Hgb Conc. 34.8 g/dL (33.0-37.0); Mean Corpuscular Volume 95.9 fL (80.0-94.0); Nucleated Red Blood Cells % 0 % (-); Platelet Count 220 10^3/uL (130-400); Red Cell Dist. Width 14.1 % (11.5-14.5)
[2025-04-29 08:40] VITALS: BP 135/61
[2025-04-29 09:07] LABS: Blood Urea Nitrogen 20 mg/dl (9-20); Calcium 9.6 mg/dl (8.4-10.2); Carbon Dioxide 28 mmol/L (22-30); Chloride 106 mmol/L (98-107); Estimated Creatinine Clearance 52 ml/min; Glucose 95 mg/dl (70-99); Potassium 4.0 mmol/L (3.5-5.1); Sodium 138 mmol/L (135-145); eGFR > 60.00
[2025-04-29 09:34] LABS: Cortisol, Random 5.8 ug/dl
[2025-04-29 11:00] VITALS: BP 134/73
--- NOTE | 2025-04-29 11:14 | W.PN.HOSP.TC ---
Today's Communication/Plan
-
monitor vitals
see plan
not dizzy today
cw teds
dc today
Discussed with spouse
Time of discharge 38 minutes
Assessment / Plan
Assessment / Plan
General: Other (79y M in no acute distress.)
HEENT: Moist mucous membranes and PERRLA
Respiratory: Clear; No Wheezes, Rales or Rhonchi
Cardiac: S1/S2, Regular Rhythm and Murmur (II/ VIET)
GI: Soft, Non Tender, Non Distended and Normal Bowel Sounds
Musculoskeletal: No Clubbing, No Cyanosis and Other (1-2+ pitting edema b/l LEs.)
Neuro: Awake, Alert and Nonfocal/grossly intact
vertigo,dizziness
has dementia so symptoms hard to rocky
- Suspect Meniere's disease as notes 1-2 episodes per year of similar symptoms.
- Meclizine PRN for any recurrent symptoms.
- PT evaluated
- TEDs stockings. Check orthostatic signs, positive. TDS. cortisol,TSH wnl
- Monitor for any new / worsening symptoms.
patient does have dementia
Chronic HFpEF
Mild Hyponatremia
Mild Hypokalemia
- Some edema evident on exam - but not changed from usual baseline per .
- Continue usual diuretic regimen. Follow for improvement in Na level with diuresis.
- Increase potassium supplementation to BID for now.
- Hold spironolactone, decrease torsemide to 20 mg daily instead of twice daily and monitor orthostatics. TEDS
- Follow I/Os, daily weights.
Paroxysmal Atrial Fibrillation
cw tele
- Continue metoprolol and Xarelto
Currently in A-fib
Benign Hypertension
- Stable. Continue current med regimen with holding parameters.
- orthostatic signs as noted above.
Asthma without Acute Exacerbation
- Continue Advair BID.
- Albuterol PRN.
Senile Dementia
- Continue Namenda. Aricept stopped some time ago due to lack of effect per .
- Follow for any agitation / delirium during acute stay.
DVT Prophylaxis: On Xarelto
Code Status: Full
Anticipated Discharge: Today
Subjective/Interval History
-
Date of Service: April 29, 2025
denies dizziness
Objective Data
-
Labs:
Laboratory Results
04/29/25
08:06
WBC 6.2
Hgb 13.9
Hct 39.9
Plt Count 220
Sodium 138
Potassium 4.0
Chloride 106
Carbon Dioxide 28
BUN 20
Creatinine 1.0
Glucose 95
Calcium 9.6
Vital Signs:
Vital Signs
Temp Pulse Resp BP Pulse Ox
97.8 F 47 14 135/61 97
04/29/25 08:00 04/29/25 08:00 04/29/25 08:00 04/29/25 08:00 04/29/25 08:30
I&O
04/28/25 04/29/25 04/30/25
06:59 06:59 06:59
Intake Total 840 / 840 1140 / 1140
Output Total 350 / 350
Balance 840 / 840 790 / 790
--- NOTE | 2025-04-29 11:23 | W.DCSUMMARY ---
Discharge Summary
Discharge Data
Date of Admission: 04/27/25
Date of Discharge: 04/29/25
-
Pending Results: No
Hospital Course
79-year-old male with history of CHF, paroxysmal atrial fibrillation, hypertension, asthma, dementia, vertigo came to the hospital with dizziness and vertigo. Patient was orthostatic positive on this hospitalization which continue to improve with
teds and fluid resuscitation. Cortisol and TSH was also normal. Given his dementia I believe patient has not been having adequate p.o. intake while on Aldactone and torsemide. Given these findings we held the Aldactone and decrease torsemide to
once daily from twice daily on discharge. This was communicated with patient and family. 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 Once his orthostasis improved, he was then discharged
home with instructions to follow-up with all his physicians outpatient.
Discharge Plan
-
Patient Disposition: Home (Routine Discharge)
Discharge Diagnosis/Procedures: Dizziness
Orthostatic hypotension
Hyponatremia
Hypokalemia
Atrial fibrillation
Condition: Fair
Diet: As tolerated
Activity: As tolerated
Driving Restrictions: Not until seen by your Dr
Bathing Restrictions: None
Referrals:
Neo Villegas MD [Family Provider, Internal Medicine] - in less than 1 week
Prescriptions:
Continued
allopurinol 100 mg Tablet
100 mg PO DAILY
pantoprazole 20 mg Tablet,Delayed Release (Dr/Ec)
20 mg PO DAILY
potassium chloride 20 mEq Tablet,Er Particles/Crystals
20 meq PO QPM
metoprolol succinate 25 mg Tablet Extended Release 24 Hr
25 mg PO QPM
memantine 5 mg Tablet
5 mg PO BID
Xarelto 20 mg Tablet
20 mg PO QPM
Patient Comments:
12/31/2023, [facility] records from 2020.
fluticasone propion-salmeterol 250-50 mcg/dose blister with device
1 inh INHALATION BID
isosorbide mononitrate 30 mg tablet extended release 24 hr
30 mg PO DAILY
Changed
torsemide 20 mg Tablet
20 mg PO DAILY Qty: 0 0RF
Held
spironolactone 25 mg Tablet
12.5 mg PO DAILY
Hold Instructions: Restart when okay with cardiology
Discharge Orders:
Discharge Patient (As Directed); Ordered 04/29/25
Ordered By: Alexi Ellis
Discharge Date and Time
Discharge Date/Time: 04/29/25 14:42
Print Language: JAPANESE
--- NOTE | 2025-04-29 11:32 | CM ---
Chart reviewed. Patient will d/c today
[facility] accepted for services
[facility]

Plan: Home today w/ [facility]
[2025-04-29 11:58] VITALS: BP 134/73
== END 2025-04-29 14:42 | disposition home health service (06) ==
LOC: 4 WEST ACU 00:33
PROVIDERS: ADMITTING PHYSICIAN Hospitalist; ATTENDING PHYSICIAN Internal Medicine; EMERGENCY PHYSICIAN Student in an Organized Health Care Education/Training Program; FAMILY PHYSICIAN Internal Medicine
DX: R42 Dizziness and giddiness (principal); I95.1 Orthostatic hypotension; I11.0 Hypertensive heart disease with heart failure; E87.1 Hypo-osmolality and hyponatremia; E87.6 Hypokalemia; I48.0 Paroxysmal atrial fibrillation; M10.9 Gout, unspecified; I50.32 Chronic diastolic (congestive) heart failure; J45.909 Unspecified asthma, uncomplicated; F03.90 Unspecified dementia, unspecified severity, without behavioral disturbance, psychotic disturbance, mood disturbance, and anxiety; Z79.899 Other long term (current) drug therapy; Z79.01 Long term (current) use of anticoagulants
CPT/HCPCS: 70450; 80048; 80053; 82533; 83735; 84443; 85025; 85027; 93005; 94640; 97162; 97166; 99284; G0378

== ENCOUNTER 2025-08-11 22:45 | Inpatient (IN) | payer OTHER, SELFPAY ==
[2025-08-11 19:19] VITALS: BP 178/81
[2025-08-11 19:21] VITALS: BP 178/81
[2025-08-11 19:40] LABS: Hematocrit 44.2 % (39.0-52.0); Hemoglobin 15.6 g/dL (13.0-18.0); Mean Corp Hgb Conc. 35.3 g/dL (33.0-37.0); Mean Corpuscular Volume 92.1 fL (80.0-94.0); Nucleated Red Blood Cells % 0 % (-); Platelet Count 248 10^3/uL (130-400); Red Cell Dist. Width 13.8 % (11.5-14.5)
[2025-08-11 19:43] LABS: Urine Character Slightly Cloudy (Clear)
[2025-08-11 19:50] LABS: ALT (SGPT) 18 U/L (0-50); AST (SGOT) 38 U/L (17-59); Albumin 3.5 g/dl (3.5-5.0); Alkaline Phosphatase 88 U/L (38-126); Blood Urea Nitrogen 26 mg/dl (9-20); Calcium 9.1 mg/dl (8.4-10.2); Carbon Dioxide 20 mmol/L (22-30); Chloride 107 mmol/L (98-107); Estimated Creatinine Clearance 72 ml/min; Glucose 90 mg/dl (70-99); Potassium 3.6 mmol/L (3.5-5.1); Sodium 133 mmol/L (135-145); Total Protein 6.6 g/dl (6.3-8.2); eGFR > 60.00
[2025-08-11 19:52] LABS: Urine Red Blood Cell 0-2 /HPF (0-2); Urine White Cell >100 /HPF (0-5)
[2025-08-11 20:00] VITALS: BP 147/70
--- NOTE | 2025-08-11 20:02 | ED.GENMED ---
History of Present Illness
General
Chief Complaint: Weakness
Time Seen by Provider: 08/11/25 19:53
History of Present Illness
History of Present Illness:
79-year-old male with history of A-fib on Xarelto, hypertension, and dementia presents to the emergency department for evaluation of weakness. According to his spouse he was attempting to go to the bathroom using his walker when he lost his balance
and fell backward, landing on his buttocks. He did not strike his head. He was not able to get himself up and refused help from family. He crawled across the tile floor and bedroom floor at which time he was assisted to the bed by his family.
Spouse notes he seemed to have frequent urine today which contributed to the concerns. Patient is a poor historian secondary to dementia and provides no meaningful history of today's events. He denies pain at this time
Past History
Past History
ED Past Medical History: Arrthythmia (AFib), CHF, HTN and Other (Spinal stenosis, left foot drop)
ED Past Surgical History: Other (herniorrhaphy)
Social History
Tobacco: Non-smoker
Alcohol: Chronic alcoholic
Drug: None
Personal:
Living: with family
Employment: Retired
Family History
Family History: Other
Review of Systems
Review of Systems
Allergies reviewed?: Yes
All Other Systems: ROS reviewed and negative except as documented in HPI and ROS
Phy Exam
Physical Exam
Physical Exam:
GEN: Well appearing, NAD, WDWN
HEENT: Oral mucosa moist, no scleral icterus
Cardiac: Irregular, controlled rate
Lung: No respiratory distress, no tachypnea
MSK: Erythema with abrasions and moderate swelling to bilateral anterior knees, knee range of motion normal bilaterally.
Skin: Good color, no pallor or jaundice, no rashes
Neuro: Alert, answers questions appropriately however pleasantly confused, follows commands, moves all extremities freely
Psych: Calm, cooperative
Course
Orders/Labs/Results
Orders:
Orders
08/11/25 Dinner
Cholesterol Lowering
Cholesterol Lowering: Sodium, 2 Gram
08/11/25 19:26
EKG [Electrocardiogram (*1)] Urgent
Reason for Study: Fatigue / Weakness
EKG- Treatment ONCE
08/11/25 19:28
Complete Blood Count/With Diff Urgent
Comprehensive Metabolic Panel Urgent
Creatine Phosphokinase Urgent
Comment: ADD ON
08/11/25 19:35
Urine Microscopic Reflex Cult Urgent
Urine Reflex Culture from UA [Urinalysis Reflex To Culture] Urgent
Date Specimen was Collected: 08/11/25
Time Specimen was Collected: 19:32
Urine Culture Urgent
WILVER Source: U
Specimen Description:
Date Specimen was Collected: 08/11/25
Time Specimen was Collected: 19:32
08/11/25 19:54
Add On- LAB Urgent
Tests Added?: CPK
08/11/25 20:41
CT Head W/o Iv Contrast Urgent
Comment:
Reason For Exam: fall, on Xarelto
0.9% Sodium Chloride 1000 ml [Nss] 1,000 ml IV BOLUS
CefTRIAXone [Rocephin] 1,000 mg IV NOW STA
08/11/25 20:58
Sterile Water [Sterile Water For Injection] 10 ml .ROUTE .STK-MED ONE
08/11/25 22:32
Admit/Transfer Patient As Directed
Co-Sign Provider:
Level of Care: Inpatient admission
Assign to:: Medical/Surgical
Physician / Group: shruti alexander
Diagnosis: symptomatic uti, fall bilat knee abrasions
Reason for Hospitalization: symptomatic uti, fall bilat knee abrasions
Expected length of stay greater than two midnights?: Yes
ELOS- Estimated Length of Stay in days: 3
I certify the patient meets the requirements for IP care: Yes
Code Status As Directed
Resuscitation Status: Full Code
08/11/25 22:36
PRN Pain Medication Management As Directed
May give lesser potent ordered pain med per pt: Yes
preference::
Protocol:: Medication orders for pain may be administered in a
manner that supports deferring to patient preference
when the pt is:
- Requesting an ordered lesser potent pain medication.
Least to most potent pain medications are defined
as: acetaminophen < NSAID < tramadol < opioids
(morphine, oxycodone, hydromorphone).
- Requesting a lesser dose of the same medication IF
ORDERED.
- Requesting a less intrusive route of administration
if both routes are prescribed by the provider (PO <
IV).
08/11/25 23:28
Acetaminophen [Tylenol] 650 mg PO Q4HPRN PRN
Bisacodyl [Dulcolax] 10 mg RECTAL [id number] PRN
Docusate W/Senna [Senokot-S] 1 tablet PO BIDPRN PRN
Polyethylene Glycol Powder [Miralax] 17 grams PO DAILYPRN PRN
08/11/25 23:28
VTE Contraindication Routine
VTE Mechanical Device Contraindication: Medical Contraindication
Pharmocologic Contraindication: Medical Contraindication
Comment: Continue FIFTH HAND Xarelto
Activity As Directed
Activity Level: With Assistance
Intake/ Output As Directed
Frequency: Per unit guidelines
Precautions As Directed
Type of Precautions: Other
Comment: fall
Vital Signs As Directed
Frequency: Per unit guidelines
Weight As Directed
Frequency: Daily
Ot Eval And Treat Routine
Pt Eval And Treat Routine
Activity Level: As Tolerated
08/12/25 06:00
Complete Blood Count/With Diff IN AM
Comprehensive Metabolic Panel IN AM
08/12/25 08:00
Allopurinol [Zyloprim] 100 mg PO DAILY
Fluticasone/Salmeterol 115/21 [Advair Hfa 115/21 Mcg Inhaler] 2 puff INH R BID
ISOSORBIDE MONOnitrate ER [Imdur (Extended Release)] 30 mg PO DAILY
Memantine HCl [Namenda] 5 mg PO BID
Pantoprazole [Protonix] 20 mg PO DAILY
08/12/25 18:00
Metoprolol Xl [Toprol Xl] 25 mg PO QPM
Rivaroxaban [Xarelto] 20 mg PO QPM
08/12/25 20:00
CefTRIAXone [Rocephin] 1,000 mg IV Q24H
08/13/25 06:00
Complete Blood Count/With Diff IN AM
Comprehensive Metabolic Panel IN AM
08/14/25 06:00
Complete Blood Count/With Diff IN AM
Comprehensive Metabolic Panel IN AM
Abnormal Lab Results
08/11/25 08/11/25
19:28 19:35
WBC 10.9 H 10^3/uL
(4.8-10.8)
MCH 32.5 H pg
(27.0-31.0)
Absolute Neuts (auto) 7.8 H 10^3/uL
(1.4-6.5)
Absolute Monos (auto) 1.1 H 10^3/uL
(0.1-0.6)
Lymphocytes % 16.1 L %
(20.5-51.1)
Monocytes % 10.4 H %
(1.7-9.3)
Sodium 133 L mmol/L
(135-145)
Carbon Dioxide 20 L mmol/L
(22-30)
BUN 26 H mg/dl
(9-20)
Total Bilirubin 1.4 H mg/dl
(0.2-1.3)
Creatine Kinase 626 H U/L
(55-170)
Urine Ketones 2+ A
(Negative)
Ur Occult Blood Reflex 1+ A
(Negative)
Urine Nitrite (Reflex) Positive A
(Negative)
Leukocyte Esterase Rfl 3+ A
(Negative)
Urine WBC (Reflex) >100 A /HPF
(0-5)
Urine Bacteria (Reflex) Many A
(Negative)
Urine Albumin (Reflex) 1+ A
(Neg - Trace)
08/11/25 19:28
08/11/25 19:28
Vital Signs
Initial and Last Documented VS:
Initial Vital Signs
Temp Pulse Resp BP Pulse Ox
98.9 F 68 20 178/81 98
08/11/25 19:19 08/11/25 19:19 08/11/25 19:19 08/11/25 19:19 08/11/25 19:19
Last Documented Vital Signs
Temp Pulse Resp BP Pulse Ox
97.9 F 71 16 160/80 95
08/11/25 23:20 08/11/25 23:20 08/11/25 23:20 08/11/25 23:20 08/11/25 23:20
MDM/Problems Addressed
MDM/Problems Addressed:
Due to severe functional weakness in the setting of an acute UTI patient will be admitted for IV antibiotics and fluids. Mild CPK elevation due to prolonged downtime, will be given IV fluids
Comment
Comment:
EKG independently interpreted by me shows a rate controlled atrial fibrillation at a rate of [address] changes concerning for ischemia
*Pulse Oximetry
SaO2: 98
Oxygen Mode of Delivery: Room air
Patient hypoxic: no
*Critical Care Note
Total Time (30-74mins, 75-104mins- exclusive of procedures): Not Applicable
Update Note
Update Note:
I spoke with the patient's spouse, Gen Obando, who states she would like the patient to remain a full code at this time
ED Attending Note
-
Portions of this chart may have been created with voice recognition software.� Occasional wrong word or��sound alike� substitutions may have occurred due to the inherent limitations of voice recognition software.
Discharge Plan
Departure
Patient Disposition: Admit
Date of Disposition: 08/11/25
Time of Disposition: 22:11
Presentation/result/management discussed w/ accepting MD/DO: Hospitalist
Discharge Problem:
Acute UTI, Generalized weakness
Interventions
Interventions:
*General Assessment Last Done: 08/11/25 19:19
*Neglect/Abuse Screening Last Done: 08/11/25 19:19
*ED COVID-19 Vaccine History Last Done: 08/11/25 19:19
*ED Influenza Vaccine History Last Done: 08/11/25 19:19
[facility] Fall Risk Assessment Tool Last Done: 08/11/25 19:25
*Risk Screen - Suicide (C-SSRS) Last Done: 08/11/25 19:19
*Nursing Disposition Last Done: 08/11/25 23:12
ED- Cardiac Assessment Last Done: 08/11/25 20:02
ED- Neurological Assessment Last Done: 08/11/25 20:02
ED- Pulmonary Assessment Last Done: 08/11/25 20:02
Discharge Date and Time
Discharge Date/Time: 08/11/25 23:13
[2025-08-11] MEDS: ROCEPHIN 1000 MG IV (20:59)
[2025-08-11 21:00] VITALS: BP 140/70
[2025-08-11] MEDS: NSS 1000 IV (21:00)
[2025-08-11 22:00] VITALS: BP 144/76
--- NOTE | 2025-08-11 22:18 | HPS.HSE ---
Addendum entered and electronically signed by Mainor Carolina MD 08/11/25 23:32:
This is an addendum to the H&P written by Kathi Ravi on 08/11/2025. �Patient seen and examined dependently with [facility].
79-year-old male past medical history of CHF, paroxysmal atrial fibrillation, hypertension, asthma, dementia, vertigo, presenting for weakness. �He lost his balance and fell backward landing on his butt. �He was not able to get up and crawled across
the floor. �He had frequent urination today.
Vital signs unremarkable. �Labs show leukocytosis of 11. �CPK 600. �Urinalysis shows greater than 100 WBC, plus leukocyte esterase, positive nitrates. �CT head shows no acute abnormality.
Patient with urinary tract infection resulting in weakness and fall. �IV fluids given. �Urine culture, ceftriaxone. Hold diuretics.�
Original Note:
Family Physician
-
Family Physician: Kat Arthur
Chief Complaint
-
Fall, urinary frequency
History of Present Illness
79-year-old male from home where he lives with his who reported he was attempting go to the bathroom with his walker when he lost his balance falling backward landing on his buttocks. He did not hit his head. He was unable to get up by
himself and was refusing help from family. It was reported he crawled across the tile floor in bedroom floor where he was eventually assisted by family up to the bed. His spouse reported that he had frequent urination today. The patient has
history of senile dementia. The patient has no current fever, chills, chest pain, palpitations, cough, shortness of breath, nausea, vomiting, diarrhea.
He has past medical history senile dementia, chronic heart failure preserved EF, paroxysmal A-fib, HTN, asthma, gout, prostate CA status post prostatectomy.
Medical History
Past Medical History
Past Medical History: Reports Other
Additional Past Medical History:
Paroxysmal Atrial Fibrillation
HFpEF
Hypertension
Gout
Dementia
Prostate Cancer
Asthma
Past Surgical History: Reports Other
Additional Past Surgical History:
Prostatectomy
Hernia Repair
Appendectomy
Social History
Tobacco: Non-smoker
Alcohol: None
Drug: None
Personal:
Living: With Family ()
Employment: Retired
Family History
Family History: Not pertinent
Allergies / Home Medications
Allergies reflects when Allergies were last updated in [facility].
Home Medications with original date entered in [facility]
Allergy/Medication List:
Allergies
Allergy/AdvReac Type Severity Reaction Status Date / Time
aspirin Allergy Hives Verified 04/26/25 21:22
Home Medications
allopurinol 100 mg tablet 100 mg PO DAILY Gout 12/31/23
memantine 5 mg tablet 5 mg PO BID Neurological Condition 12/31/23
metoprolol succinate 25 mg tablet,extended release 24 hr 25 mg PO QPM Blood Pressure 12/31/23
pantoprazole 20 mg tablet,delayed release 20 mg PO DAILY Gastrointestinal Issue 12/31/23
potassium chloride 20 mEq tablet,extended release(part/cryst) 20 meq PO QPM Electrolyte Repletion 12/31/23
rivaroxaban 20 mg tablet (Xarelto) 20 mg PO QPM Blood Clot Prevention/Tx 12/31/23
spironolactone 25 mg tablet 12.5 mg PO DAILY Blood Pressure 12/31/23
Held on 04/29/25. Instructions: Restart when okay with cardiology
fluticasone 250 mcg-salmeterol 50 mcg/dose blistr powdr for inhalation 1 inh inhalation BID Lung/Breathing Issues 04/27/25
isosorbide mononitrate 30 mg tablet,extended release 24 hr 30 mg PO DAILY Heart Disease/Condition 04/27/25
torsemide 20 mg tablet 20 mg PO DAILY Fluid Retention/Swelling #0 tabs 04/29/25
fluticasone 250 mcg-salmeterol 50 mcg/dose blistr powdr for inhalation 1 inh inhalation BID 08/11/25
Review of Systems
-
History Source: Patient and Other (ER record)
A 12 point ROS was completed and negative except as noted: Yes
Constitutional: Denies Fever or Chills
EENT: Denies Sore Throat or Runny Nose
Respiratory: Denies Cough or Trouble Breathing
Cardiac: Denies Chest Pain, Diaphoresis or Palpitations
Abdomen/GI: Denies Abdominal Pain, Nausea, Vomiting or Diarrhea
: Reports Frequency
Musculoskeletal: Reports Other (Bilateral knees erythematous secondary to crawling on floor/carpet); Denies Joint Pain or Edema
Skin: Denies Itching or Rash
Neurological: Denies Dizzy or Headache
Endocrine: Reports No Symptoms
Hematologic/Lymphatic: Reports No Symptoms
Psych: Reports Calm
Physical Exam
Vital Signs
Vital Signs
Temp Pulse Resp BP Pulse Ox
98.9 F 69 18 144/76 97
08/11/25 19:19 08/11/25 22:00 08/11/25 22:12 08/11/25 22:00 08/11/25 22:00
Physical Exam
General: No Pain, Fever or Chills
HEENT: NormoCephalic, Anicteric, PERRLA, [place] Conjunctivae and No Ptosis
Respiratory: Clear; No Wheezes, Rales or Rhonchi
Cardiac: S1/S2 and Regular Rhythm; No Murmur, Rub, Gallop or Peripheral Edema
Breast: Deferred by me
GI: Soft, Non Tender, Non Distended, Normal Bowel Sounds and No Hepatosplenomegaly
Rectal: Deferred by Provider
Genito-urinary: Deferred by me
Musculoskeletal: No Clubbing, No Cyanosis, No Edema and Other (Bilateral knees erythematous secondary to crawling on floor/carpet)
Skin: Warm, Dry and Rash
Neuro: Awake, Alert, Oriented (Oriented to name, hospital) and No Sensory Deficits; No Slurred Speech, Facial Droop, Tremors or Sedated
Psych: Calm
Laboratory Results
-
08/11/25 19:28
08/11/25 19:28
Laboratory Results
Total Bilirubin 1.4 mg/dl (0.2-1.3) H 08/11/25 19:28
AST 38 U/L (17-59) 08/11/25 19:28
ALT 18 U/L (0-50) 08/11/25 19:28
Alkaline Phosphatase 88 U/L (38-126) 08/11/25 19:28
Data Reviewed
-
Lab Data: Labs Reviewed by me
Impression/Plan
-
Impression/plan:
Admit to MedSurg
#Symptomatic UTI
Frequent urination today
UA positive nitrite +3 leukocyte WBC> 100 many bacteria
WBC 10.9 with left shift, 98.9, HR 69
- Follow urine culture
- IV Rocephin
- Follow CBC, BMP
#Fall secondary to weakness from UTI
Fall precautions
- PT/OT consult
CT head:
No acute intracranial abnormality noted. No acute intracranial hemorrhage or extra-axial collection. No skull fracture.
Stable ventricular prominence slightly out of proportion to cerebral sulcal prominence. Although likely reflecting central greater than cortical atrophy,
the possibility of normal pressure hydrocephalus may be considered in the proper clinical setting.
#Bilateral knee contusions secondary to crawling on carpet/floor
#Creatinine kinase elevation due to prolonged downtime from fall
CK 626 will monitor
-IV NSS 1 L given in ER
#Senile dementia
Patient oriented to name, hospital
-Continue Namenda
#Chronic heart failure preserved EF
I/O, daily weight
Hold torsemide, spironolactone
#Paroxysmal A-fib
-Continue metoprolol, Xarelto
#HTN�benign
BP 144/76
-Continue Imdur 30 mg daily, metoprolol succinate 25 mg every afternoon
#Asthma�no acute exacerbation
-Continue Advair
#Gout
-Continue allopurinol
#GERD
Continue Protonix
#prostate CA status post prostatectomy
VTE prophylaxis
Continue SCIENTIFIC HELPER Xarelto
Full code
[2025-08-11 23:20] VITALS: BP 160/80; BMI 27.1
--- NOTE | 2025-08-11 23:30 | PTCARENOTE ---
Received patient from ED. Patient transferred directly to the bed. Bed alarm was already placed. VSS. Patient oriented to the unit. Patient verbalized an understanding to ring for all transfers. Call malave within reach.
[2025-08-12 00:19] VITALS: BMI 27.1
[2025-08-12] MEDS: TYLENOL 650 MG PO ×2 (00:23→17:28)
[2025-08-12 06:00] VITALS: BMI 27.1
[2025-08-12] MEDS: ADVAIR HFA 115/21 MCG INHALER 2 PUFF INH ×2 (07:30→20:27)
[2025-08-12 07:47] LABS: Hematocrit 40.2 % (39.0-52.0); Hemoglobin 14.3 g/dL (13.0-18.0); Mean Corp Hgb Conc. 35.6 g/dL (33.0-37.0); Mean Corpuscular Volume 93.1 fL (80.0-94.0); Nucleated Red Blood Cells % 0 % (-); Platelet Count 227 10^3/uL (130-400); Red Cell Dist. Width 13.5 % (11.5-14.5)
[2025-08-12 08:07] VITALS: BP 141/80
[2025-08-12 08:21] LABS: ALT (SGPT) 15 U/L (0-50); AST (SGOT) 33 U/L (17-59); Albumin 3.3 g/dl (3.5-5.0); Alkaline Phosphatase 87 U/L (38-126); Blood Urea Nitrogen 22 mg/dl (9-20); Calcium 9.5 mg/dl (8.4-10.2); Carbon Dioxide 19 mmol/L (22-30); Chloride 109 mmol/L (98-107); Estimated Creatinine Clearance 70 ml/min; Glucose 88 mg/dl (70-99); Sodium 135 mmol/L (135-145); Total Protein 6.3 g/dl (6.3-8.2); eGFR > 60.00
[2025-08-12 08:28] LABS: Potassium 3.8 mmol/L (3.5-5.1)
[2025-08-12] MEDS: ZYLOPRIM 100 MG PO (08:39)
[2025-08-12] MEDS: IMDUR (EXTENDED RELEASE) 30 MG PO (08:39)
[2025-08-12] MEDS: NAMENDA 5 MG PO ×2 (08:39→20:01)
[2025-08-12] MEDS: PROTONIX 20 MG PO (08:39)
--- NOTE | 2025-08-12 10:56 | W.PN.HOSP.TC ---
Today's Communication/Plan
-
Assessment / Plan
Assessment / Plan
UTI
IV Rocephin
Urine culture
Fall secondary to weakness
Fall precautions
PT/OT
Acute rhabdo, mild
S/p IV fluids
Atrial fibrillation, chronic
Continue beta-candi Xarelto
Chronic heart failure preserved EF
I's and O's
Daily weights
Hold torsemide Aldactone
Hypertension
Continue antihypertensives
Asthma
Continue Advair
Gout
Continue allopurinol
GERD
Continue Protonix
Prostate cancer
S/p prostatectomy
Anticipated Discharge: 24 - 48 hours
Subjective/Interval History
-
Date of Service: August 12, 2025
Seen and examined. No new complaints. No acute overnight events.
Sitting in bedside chair eating breakfast. Knows that he is at [facility]. Does not know the year or the month.
Objective Data
-
Labs:
Laboratory Results
08/12/25
07:35
WBC 8.0
Hgb 14.3
Hct 40.2
Plt Count 227
Sodium 135
Potassium 3.8
Chloride 109 H
Carbon Dioxide 19 L
BUN 22 H
Creatinine 0.8
Glucose 88
Calcium 9.5
Total Bilirubin 1.3
AST 33
ALT 15
Alkaline Phosphatase 87
Vital Signs:
Vital Signs
Temp Pulse Resp BP Pulse Ox
98.3 F 70 18 141/80 95
08/12/25 08:07 08/12/25 08:07 08/12/25 08:07 08/12/25 08:07 08/12/25 08:07
I&O
08/11/25 08/12/25 08/13/25
06:59 06:59 06:59
Intake Total 1240 / 1240
Output Total 575 / 575
Balance 665 / 665
Physical Exam
-
General: No Apparent Distress and Comfortable
HEENT: Normocephalic and Atraumatic
Respiratory: Clear to Auscultation
Cardiac: Regular Rhythm and S1/S2
GI: Soft, Nontender, Nondistended and Normal Bowel Sounds
Musculoskeletal: No Clubbing, No Cyanosis and No Edema
Neuro: Awake and Alert; Negative Oriented (Nose place and person. Does not know time)
[2025-08-12 15:10] VITALS: BP 121/63
[2025-08-12 15:34] VITALS: BP 121/63; BP 156/77; PULSE 86; O2SAT 98
[2025-08-12 15:38] VITALS: BP 156/77; PULSE 104
--- NOTE | 2025-08-12 15:46 | PTCARENOTE ---
Addendum entered by Shivani Grajeda RN 08/12/25 18:40:
Verbal order taken for CXR and proBNP in AM. Patient c/o B/L knee pain rated 6-7/10 unrelieved by PRN Tylenol, states knees feel like they are 'throbbing.' Large abrasions/rug spence present on both knees from admission, covered with foams for
protection. Patient provided ice packs to knees, made aware, verbal order taken for PRN Voltaren cream.
Original Note:
Patient with +2-3 LE/pedal edema, states to this RN he has leg swelling at baseline and is supposed to wear compression socks at home though says he typically doesn't wear as they are 'too hard to get on.' Patient with DOWNS, POX stable 96% RA. OOB
with PT/OT x2 assist and RW. made aware of LE edema and DOWNS, verbal order taken for B/L knee high Tubigrips.
[2025-08-12] MEDS: TOPROL XL 25 MG PO (17:20)
[2025-08-12] MEDS: XARELTO 20 MG PO (17:20)
[2025-08-12] MEDS: ROCEPHIN 1000 MG IV (19:57)
[2025-08-12] MEDS: STERILE WATER FOR INJECTION 10 ML IV (19:57)
[2025-08-12] MEDS: DICLOFENAC 1% TOPICAL GEL 4 GRAM TOPICAL (21:56)
[2025-08-12 23:21] VITALS: BP 129/68
[2025-08-13] MEDS: ADVAIR HFA 115/21 MCG INHALER 2 PUFF INH ×2 (07:22→18:17)
[2025-08-13 07:49] VITALS: BP 156/66
[2025-08-13 09:59] LABS: Hematocrit 40.4 % (39.0-52.0); Hemoglobin 14.1 g/dL (13.0-18.0); Mean Corp Hgb Conc. 34.9 g/dL (33.0-37.0); Mean Corpuscular Volume 95.1 fL (80.0-94.0); Platelet Count 230 10^3/uL (130-400); Red Cell Dist. Width 13.9 % (11.5-14.5)
[2025-08-13 10:35] LABS: Blood Urea Nitrogen 20 mg/dl (9-20); Calcium 9.2 mg/dl (8.4-10.2); Carbon Dioxide 20 mmol/L (22-30); Chloride 105 mmol/L (98-107); Estimated Creatinine Clearance 62 ml/min; Glucose 120 mg/dl (70-99); Potassium 3.8 mmol/L (3.5-5.1); Sodium 134 mmol/L (135-145); eGFR > 60.00
[2025-08-13] MEDS: ZYLOPRIM 100 MG PO (10:35)
[2025-08-13] MEDS: NAMENDA 5 MG PO ×2 (10:36→20:16)
[2025-08-13] MEDS: IMDUR (EXTENDED RELEASE) 30 MG PO (10:36)
[2025-08-13] MEDS: PROTONIX 20 MG PO (10:39)
--- NOTE | 2025-08-13 10:43 | W.PN.HOSP.TC ---
Today's Communication/Plan
-
Follow up sensitivities
IV Rocephin
Transition to oral antibiotics on discharge with plan to treat for total 10 days for complicated UTI male
Case management consult for SNF
Assessment / Plan
Assessment / Plan
Symptomatic E. coli UTI�complicated as male
stated noted to have urinary frequency. Though UA consistent with contamination with squamous epis of 11-15
Urine culture positive for E. coli though sensitivities pending
IV Rocephin
Fall secondary to weakness
Fall precautions
PT/OT recommends SNF
Acute rhabdo, mild
S/p IV fluids
Atrial fibrillation, chronic
Continue beta-candi Xarelto
Chronic heart failure preserved EF, compensated
BNP lower than previous, CXR with evidence of pulmonary edema/cardiomegaly
I's and O's
Daily weights
Resume Aldactone torsemide
Hypertension
Continue antihypertensives
Hyponatremia
Encourage p.o. intake
Asthma
Continue Advair
Gout
Continue allopurinol
GERD
Continue Protonix
Prostate cancer
S/p prostatectomy
Spoke with Junie Obando provided full update agreeable to SNF. Reviewed hospitalization including CT brain urine culture demonstrating E. coli pending sensitivities on IV Rocephin.
Anticipated Discharge: 24 - 48 hours
Subjective/Interval History
-
Date of Service: August 13, 2025
Seen and examined. No new complaints. No acute overnight events.
Objective Data
-
Labs:
Laboratory Results
08/13/25
09:36
WBC 8.4
Hgb 14.1
Hct 40.4
Plt Count 230
Sodium 134 L
Potassium 3.8
Chloride 105
Carbon Dioxide 20 L
BUN 20
Creatinine 0.9
Glucose 120 H
Calcium 9.2
Vital Signs:
Vital Signs
Temp Pulse Resp BP Pulse Ox
98.0 F 70 18 156/66 95
08/13/25 07:49 08/13/25 07:49 08/13/25 07:49 08/13/25 07:49 08/13/25 07:49
I&O
08/12/25 08/13/25 08/14/25
06:59 06:59 06:59
Intake Total 1240 / 1240 1080 / 1080
Output Total 575 / 575 900 / 900
Balance 665 / 665 180 / 180
Physical Exam
-
General: No Apparent Distress and Comfortable
HEENT: Normocephalic, Atraumatic and Moist Mucous Membranes
Respiratory: Clear to Auscultation
Cardiac: Regular Rhythm and S1/S2
GI: Soft, Nontender, Nondistended and Normal Bowel Sounds
Genito-urinary: No Costovertebral Tender
Musculoskeletal: No Clubbing and No Cyanosis
Skin: Warm and Dry
Neuro: Awake and Alert
Psych: Calm
[2025-08-13] MEDS: ALDACTONE 12.5 MG PO (11:18)
[2025-08-13] MEDS: DEMADEX 20 MG PO (11:21)
--- NOTE | 2025-08-13 12:32 | CM ---
Addendum entered by Hodan Mcclelland 08/13/25 15:25:
IA completed with assistance of . Pt requires supervision and encouragement to complete ADLs. Lives in a condo with his . NO hs of home O2; no insecurities identified. Confirmed, Rx, insurance and drug coverage. Incorrect PCP name in
computer. Admissions notified of correct name
PCP: Neo Villegas
Rx: Mary / Renée
hx of SNF at [facility]
DME: RW, grab bars and shower chair
SNF referrals placed for [facility], [facility]
Plan: DC to SNF when pt is stable. Pt will need auth
Original Note:
CM consult completed. CM spoke to the about PT/OT recommendations for skilled care. She is unfamiliar with SNFs in the area. Medicare.gov 5-star list for the [facility] placed in pt room. will review it when she comes in later today.
is very concerned about his increasing forgetfulness. Also stated that ADLs create SOB.
Plan: DC to SNF when stable. Pt will need an auth
[2025-08-13 15:28] VITALS: BP 151/77
[2025-08-13] MEDS: XARELTO 20 MG PO (16:44)
[2025-08-13] MEDS: TYLENOL 650 MG PO ×2 (16:45→21:06)
[2025-08-13] MEDS: TOPROL XL 25 MG PO (16:45)
[2025-08-13] MEDS: DICLOFENAC 1% TOPICAL GEL 4 GRAM TOPICAL (16:47)
[2025-08-13] MEDS: ROCEPHIN 1000 MG IV (20:23)
[2025-08-13] MEDS: STERILE WATER FOR INJECTION 10 ML IV (20:25)
[2025-08-13 23:21] VITALS: BP 139/71
--- NOTE | 2025-08-14 03:47 | PTCARENOTE ---
This RN started the shift with Mr. Obando, and assumed patients care. No change from previous shift. This RN administered PM meds (see MAR) and assisted with hygiene and toileting. Around 2099 another RN, John Duvall RN came in and now has assumed
this pts care.
[2025-08-14 06:00] VITALS: BMI 26.4
[2025-08-14 07:20] VITALS: BP 152/79
[2025-08-14] MEDS: ADVAIR HFA 115/21 MCG INHALER 2 PUFF INH ×2 (07:37→18:14)
[2025-08-14] MEDS: PROTONIX 20 MG PO (08:51)
[2025-08-14] MEDS: IMDUR (EXTENDED RELEASE) 30 MG PO (08:52)
[2025-08-14] MEDS: DEMADEX 20 MG PO (08:52)
[2025-08-14] MEDS: ALDACTONE 12.5 MG PO (08:52)
[2025-08-14] MEDS: NAMENDA 5 MG PO (08:52)
[2025-08-14] MEDS: ZYLOPRIM 100 MG PO (08:52)
[2025-08-14 08:53] LABS: Hematocrit 39.5 % (39.0-52.0); Hemoglobin 13.6 g/dL (13.0-18.0); Mean Corp Hgb Conc. 34.4 g/dL (33.0-37.0); Mean Corpuscular Volume 94.5 fL (80.0-94.0); Platelet Count 227 10^3/uL (130-400); Red Cell Dist. Width 14.1 % (11.5-14.5)
[2025-08-14 09:38] LABS: Blood Urea Nitrogen 21 mg/dl (9-20); Calcium 8.8 mg/dl (8.4-10.2); Carbon Dioxide 25 mmol/L (22-30); Chloride 104 mmol/L (98-107); Estimated Creatinine Clearance 62 ml/min; Glucose 110 mg/dl (70-99); Potassium 3.6 mmol/L (3.5-5.1); Sodium 135 mmol/L (135-145); eGFR > 60.00
[2025-08-14 10:02] VITALS: BP 148/78; PULSE 77
[2025-08-14 10:16] VITALS: BP 148/78; PULSE 77
[2025-08-14] MEDS: ULTRAM 50 MG PO (12:14)
--- NOTE | 2025-08-14 12:26 | CM ---
[facility]/14/25 15:05:
Call from spouse who confirmed receipt of VM
She remains in agreement with plan
[facility] 08/14/25 14:21:
Pt cleared for dc
VM left for spouse- IMM verbally reviewed
Copy placed in dc folder
Bedside update to pt
Medical necessity on chart
Transport arranged 1730 pickup
Original Note:
CM reviewed pt with attending- likely dc later today
Discussion with spouse who notes [facility] is 1st choice
Pt accepted for admission by [facility]
COVID test requested for SNF placement, vax hx sent via [facility] to SNF
SNF and BLS auth obtained through [facility]
SNF- [id number] 5 days NRD 08/18/25 p-[phone]
BLS- [id number] (1 way 5 days through 08/18)
Awaiting clearance for dc
SNF can accept after 4pm for admission
Discharge Disposition- [facility] via BLS
Phone-[phone] Fax- [phone]
Please fax COVID results with dc paperwork
[2025-08-14 13:08] LABS: COVID-19 Antigen Negative (Negative)
--- NOTE | 2025-08-14 13:21 | W.PN.HOSP.TC ---
Addendum entered and electronically signed by Sepideh Graham MD 08/15/25 09:11:
Traumatic rhabdomyolysis
Original Note:
Today's Communication/Plan
-
dc to SNF
Assessment / Plan
Assessment / Plan
Assessment:
Symptomatic pansensitive E. coli UTI, complicated UTI in male
- continue Rocephin, day 10/28
Fall secondary to weakness
Fall precautions
- PT/OT recommends SNF
R hip pain
- likely from fall
- Xray negative
- prn Tramadol
Acute rhabdomyolysis, mild
- s/p IV fluids
Atrial fibrillation, chronic
- continue beta-candi Xarelto
Chronic heart failure preserved EF, compensated
- BNP lower than previous, CXR with evidence of pulmonary edema/cardiomegaly
- I's and O's
- Daily weights
- continue Aldactone and torsemide
Essential hypertension
- continue antihypertensives
Hyponatremia
- Encourage p.o. intake
Asthma
- continue Advair
Gout
- continue allopurinol
GERD
- continue Protonix
Prostate cancer
- s/p prostatectomy
DVT ppx: Xarelto
Code: Full
Anticipated Discharge: 24 - 48 hours
Subjective/Interval History
-
Date of Service: August 14, 2025
reports RLE pain, upper later thigh
reports falling on that leg
Objective Data
-
Labs:
Laboratory Results
08/14/25
08:45
WBC 7.0
Hgb 13.6
Hct 39.5
Plt Count 227
Sodium 135
Potassium 3.6
Chloride 104
Carbon Dioxide 25
BUN 21 H
Creatinine 0.9
Glucose 110 H
Calcium 8.8
Vital Signs:
Vital Signs
Temp Pulse Resp BP Pulse Ox
98.7 F 64 16 152/79 97
08/14/25 07:20 08/14/25 07:39 08/14/25 07:39 08/14/25 08:52 08/14/25 07:39
I&O
08/13/25 08/14/25 08/15/25
06:59 06:59 06:59
Intake Total 1080 / 1080 480 / 480
Output Total 900 / 900 1550 / 1550
Balance 180 / 180 -1070 / -1070
Physical Exam
-
General: No Apparent Distress
HEENT: Normocephalic and Atraumatic
Respiratory: Clear to Auscultation; Negative Wheezes
Cardiac: Regular Rhythm and S1/S2
GI: Soft and Nontender
Genito-urinary: No Costovertebral Tender
Musculoskeletal: No Edema
Neuro: AO x 3
Hematologic / Lymphatic: No Lymphadenopathy
Psych: Calm
Data Reviewed
-
Total Time Spent with Patient (in minutes): 41
Labs: Labs Reviewed by me
--- NOTE | 2025-08-14 13:58 | W.DCSUMMARY ---
Discharge Summary
Discharge Data
Date of Admission: 08/11/25
Date of Discharge: 08/14/25
-
Pending Results: No
Hospital Course
79 y/o M, past medical history of CHF, paroxysmal atrial fibrillation, hypertension, asthma, dementia, vertigo presented to ER on 08/11 with weakness with fall. Patient reported R hippain but xray was negative, along with CT head being negative.
Patient also had frequent urination. He was found to have E. Coli UTI and was started on Rocephin. He will complete 14 day course with Cefdinir. Patient evaluated by PT/OT and recommended to go to SNF. He was discharged 08/14/25 to SNF.
Discharge Plan
-
Patient Disposition: Longterm/SNF
Discharge Diagnosis/Procedures: Complicated UTI, falls
Condition: Fair
Diet: Low Cholesterol
Activity: As tolerated
Bathing Restrictions: None
Other Services: PT and OT
Referrals:
Kat Arthur CRNP [Non-Admitting Privileges, General] - in one week
Prescriptions:
New
cefdinir 300 mg capsule
300 mg PO BID Qty: 20 0RF
Rx Instructions:
start 12/30 AM
tramadol 50 mg Tablet
50 mg PO Q6HPRN PRN (Reason: moderate to severe pain) Qty: 10 0RF
Continued
allopurinol 100 mg Tablet
100 mg PO DAILY
spironolactone 25 mg Tablet
12.5 mg PO DAILY
pantoprazole 20 mg Tablet,Delayed Release (Dr/Ec)
20 mg PO DAILY
potassium chloride 20 mEq Tablet,Er Particles/Crystals
20 meq PO QPM
metoprolol succinate 25 mg Tablet Extended Release 24 Hr
25 mg PO QPM
memantine 5 mg Tablet
5 mg PO BID
Xarelto 20 mg Tablet
20 mg PO QPM
Patient Comments:
12/31/2023, [facility] records from 2020.
fluticasone propion-salmeterol 250-50 mcg/dose blister with device
1 inh INHALATION BID
isosorbide mononitrate 30 mg tablet extended release 24 hr
30 mg PO DAILY
torsemide 20 mg Tablet
20 mg PO DAILY Qty: 0 0RF
Discontinued
fluticasone propion-salmeterol 250-50 mcg/dose blister with device
1 inh INHALATION BID
Discharge Orders:
Discharge Patient (As Directed); Ordered 08/14/25
Ordered By: Sepideh Graham
Discharge Date and Time
Print Language: [place]
[2025-08-14 14:54] VITALS: BP 141/74
--- NOTE | 2025-08-15 08:34 | PN.CDI ---
CDI
- -
CDI:
Physician Documentation Request
Admit Date: 08/11/25 22:45
Dear Doctor,
Patient admitted after fall.
ER Physician Documentation: 'he lost his balance and fell backward, landing on his buttocks...He was not able to get himself up and refused help from family. He crawled across the tile floor and bedroom floor at which time he was assisted to the
bed by his family.'
08/14 Hospitalist PN: 'Acute rhabdomyolysis, mild - s/p IV fluids'
Based on the above, could you clarify in the progress notes, the appropriate diagnosis, if significant, that supports the above abnormalities and additional evaluation, monitoring and/or treatment rendered:
Traumatic rhabdomyolysis
Nontraumatic rhabdomyolysis
Other
Use of terms such as suspected, likely, concern for, or probable (associated with a specific diagnosis that is being evaluated, monitored, or treated as if it exists) are acceptable and can be coded in the inpatient setting, when documented at the
time of discharge.
Thank you,
Nadine Deleon RN, BSN
CDI Specialist
Available via [place] text
Please use your independent medical judgment in providing your response.
== END 2025-08-14 18:24 | DRG 690 ==
LOC: 2 NORTH 22:45
PROVIDERS: Clinical Nurse Specialist Family Health; Hospitalist; ADMITTING PHYSICIAN Hospitalist; ATTENDING PHYSICIAN Internal Medicine; EMERGENCY PHYSICIAN Emergency Medicine; FAMILY PHYSICIAN Internal Medicine
DX: N39.0 Urinary tract infection, site not specified (principal); I48.20 Chronic atrial fibrillation, unspecified; I50.32 Chronic diastolic (congestive) heart failure; E87.1 Hypo-osmolality and hyponatremia; S80.219A Abrasion, unspecified knee, initial encounter; W01.0XXA Fall on same level from slipping, tripping and stumbling without subsequent striking against object, initial encounter; Y93.01 Activity, walking, marching and hiking; I11.0 Hypertensive heart disease with heart failure; T79.6XXA Traumatic ischemia of muscle, initial encounter; Z11.52 Encounter for screening for COVID-19; Z79.899 Other long term (current) drug therapy
CPT/HCPCS: 70450; 71046; 73502; 80048; 80053; 81003; 81015; 82550; 83880; 85025; 85027; 87071; 87086; 87186; 87811; 93005; 94640; 96361; 96374; 97116; 97162; 97167; 97535; 99285